=== PATIENT | male | born 1965 | race Caucasian/White ===

== ENCOUNTER → 2018-03-15 | Day surgery (SDC) | payer OTHER ==
[2018-03-14 09:37] VITALS: BMI 30.4
[~2018-03-15] MED LIST: LACTATED RINGERS 1,000 ML IV SCH; LIDOCAINE 1% 20 ML VIAL (10MG/ML) FOR IV START INTRADERMA ONE; MIDAZOLAM 2 MG/2 ML VIAL ONE; PROPOFOL 10 MG/ML 20 ML VIAL IV ONE; fentaNYL (PF) 50 MCG/ML 2 ML AMP ONE
[2018-03-15 07:57] VITALS: TEMP 97.2
--- NOTE | 2018-03-15 08:53 | P.GSHP ---
History of Present Illness H&P Date: 03/15/18 Chief Complaint: Screening colonoscopy This a 52-year-old male from Dr. Marlyn watson. Patient is evidence today for screening colonoscopy. He has history of colon polyps. His last colonoscopy his prostate 4 years ago. Past Medical History Past Medical History: Asthma, Coronary Artery Disease (CAD), Chest Pain / Angina , Hypertension Additional Past Medical History / Comment(s): hemorrhoids-BLEEDING WITH STOOLS, CONSTIPATION,diverticulosis,polyps,HAS ONLY RT KIDNEY-DONATED LT KIDNEY History of Any Multi-Drug Resistant Organisms: None Reported Past Surgical History: Heart Catheterization With Stent, Orthopedic Surgery Additional Past Surgical History / Comment(s): CARDIAC STENTS X 6, HEART CATH X2 ,FUSION C3-C4,LT KNEE SURGERY,RT SHOULDER SURGERY,LT NEPHRECTOMY Past Anesthesia/Blood Transfusion Reactions: No Reported Reaction Date of Last Stent Placement:: Smoking Status: Former smoker - Past Family History Mother Family Medical History: Diabetes Mellitus, Renal Disease Additional Family Medical History / Comment(s): CAROTID ARTERIES OPENED UP Father Additional Family Medical History / Comment(s): AT AGE 36 WITH ANEURYSM Medications and Allergies Home Medications Medication Instructions Recorded Confirmed Type Aspirin 81 mg PO DAILY 03/16/15 03/14/18 History Atorvastatin [Lipitor] 80 mg PO HS 03/16/15 03/15/18 History Calcium Polycarbophil [Fibercon] 625 mg PO DAILY 03/16/15 03/15/18 History Enalapril [Vasotec] 5 mg PO BID 03/16/15 03/14/18 History Metoprolol Succinate [Toprol XL] 50 mg PO HS 03/16/15 03/15/18 History Multivitamins, Thera [Multivitamin] 1 tab PO DAILY 03/16/15 03/14/18 History Prasugrel [Effient] 10 mg PO DAILY 03/16/15 03/14/18 History Sertraline HCl [Zoloft] 50 mg PO QAM 03/16/15 03/15/18 History Vitamin E (Dl,Tocopheryl Acet) 400 unit PO DAILY 03/16/15 03/14/18 History [Vitamin E] Cetirizine HCl/Pseudoephedrine 1 each PO DAILY 03/14/18 03/14/18 History [Zyrtec-D Tablet] Ergocalciferol [Vitamin D2] 50,000 unit PO MUNGUIA 03/14/18 03/14/18 History Gabapentin(Unk Dose) 1 tab PO BID 03/14/18 03/14/18 History traMADol HCL [Ultram] 50 mg PO Q6HR PRN 03/14/18 03/15/18 History Allergies Allergy/AdvReac Type Severity Reaction Status Date / Time oxycodone HCl [From Percocet] Allergy severe Verified 03/14/18 09:27 agitation Surgical - Exam Vital Signs Temp Pulse Resp BP Pulse Ox 97.2 F L 65 16 103/66 99 03/15/18 07:54 03/15/18 07:54 03/15/18 07:54 03/15/18 07:54 03/15/18 07:54 - General well developed, no distress - Eyes PERRL - ENT normal pinna - Neck no masses - Respiratory normal expansion - Cardiovascular Rhythm: regular - Abdomen Abdomen: soft, non tender Assessment and Plan Assessment: History of colon polyps. We'll perform colonoscopy.
--- NOTE | 2018-03-15 09:07 | P.OP ---
Date of Procedure: 03/15/18 Preoperative Diagnosis: History of colon polyps Postoperative Diagnosis: Rectal polyp Diverticulosis Procedure(s) Performed: Colonoscopy Anesthesia: MAC Surgeon: Terrence Mcdonough Pathology: other (Rectal polyp) Condition: stable Disposition: PACU Description of Procedure: The patient's placed on the endoscopy table in the lateral position. He received IV sedation. Digital rectal exam was performed which revealed no ebonized. The flexible colonoscope was then placed patient anus passed throughout the entire colon. The ileocecal valve was visualized. The cecum, ascending and transverse colon appeared normal. In the descending; there is mild diverticular changes. Scope was then brought back the rectum and a sessile polyp was visualized with the cold forcep. Scope was withdrawn for patient.
[2018-03-15 09:15] VITALS: RESP 18
[2018-03-15 10:08] VITALS: BP 100/59; PULSE 57
== END ==
LOC: ORWHC2ENDO 14:23
PROVIDERS: ATTEND Surgery
DX: Z12.11 Encounter for screening for malignant neoplasm of colon (principal); K62.1 Rectal polyp; K57.30 Diverticulosis of large intestine without perforation or abscess without bleeding; Z86.010 Personal history of colon polyps; J45.909 Unspecified asthma, uncomplicated; I25.119 Atherosclerotic heart disease of native coronary artery with unspecified angina pectoris; I10 Essential (primary) hypertension; Z90.5 Acquired absence of kidney; Z95.5 Presence of coronary angioplasty implant and graft; Z87.891 Personal history of nicotine dependence; I25.2 Old myocardial infarction; E78.5 Hyperlipidemia, unspecified; Z79.82 Long term (current) use of aspirin; Z79.899 Other long term (current) drug therapy; Z88.5 Allergy status to narcotic agent
CPT/HCPCS: 88305; 45380; J2250; J3010; J2704

== ENCOUNTER 2019-02-17 16:26 | Emergency (ER) | payer OTHER ==
[2019-02-17 17:30] VITALS: BP 167/83; PULSE 68; RESP 18; TEMP 98.2
[2019-02-17] MEDS ORDERED: DIPH,PERTUS(ACELL)TETVAC-LF 0.5 ML VIAL IM ONE (17:42)
[2019-02-17] MEDS ORDERED: ceFAZolin 1,000 MG VIAL IM STA (17:42)
--- NOTE | 2019-02-17 18:24 | XR ---
EXAMINATION TYPE: XR hand complete LT DATE OF EXAM: 02/17/2019 COMPARISON: NONE HISTORY: Injury pain TECHNIQUE: 3 views FINDINGS: There is deformity of the tuft of the distal phalanx of the middle finger consistent with f racture and laceration. There is a 1 mm metallic foreign body at the soft tissues of the tip of the l ittle finger. There is no dislocation. IMPRESSION: Laceration deformity of the distal phalanx of the middle finger.
[2019-02-17] MEDS ORDERED: LIDOCAINE 1% INJ 10MG/ML (20 ML MDV) SQ ONE (18:37)
--- NOTE | 2019-02-17 18:53 | ED ---
Upper Extremity HPI - General Chief Complaint: Extremity Injury, Upper Stated Complaint: Drill went though finger Time Seen by Provider: 02/17/19 17:32 Source: patient Mode of arrival: ambulatory Limitations: no limitations - History of Present Illness Initial Comments: 53-year-old male presents today for chief complaint of left third digit injury. Patient states he drilled through the tip of his left third digit. He states he went to the nailbed. Patient denies loss of sensation. Patient denies any muscle weakness or decreased range of motion at the left third digit. Patient states he has on anticoagulation therapy. Patient states he applied pressure and presented for dilation. Patient is unsure of his last tetanus vaccination. She denies any other areas of injury. Remaining review of systems negative, patient denies any recent fever, chills, shortness of breath, chest pain, back pain, abdominal pain, nausea or vomiting, numbness or tingling, dysuria or hematuria, constipation or diarrhea, headaches or visual changes, or any other complaints. - Related Data Home Medications Medication Instructions Recorded Confirmed Aspirin 81 mg PO DAILY 03/16/15 03/14/18 Atorvastatin [Lipitor] 80 mg PO HS 03/16/15 03/15/18 Calcium Polycarbophil [Fibercon] 625 mg PO DAILY 03/16/15 03/15/18 Enalapril [Vasotec] 5 mg PO BID 03/16/15 03/14/18 Metoprolol Succinate [Toprol XL] 50 mg PO HS 03/16/15 03/15/18 Multivitamins, Thera [Multivitamin] 1 tab PO DAILY 03/16/15 03/14/18 Prasugrel [Effient] 10 mg PO DAILY 03/16/15 03/14/18 Sertraline HCl [Zoloft] 50 mg PO QAM 03/16/15 03/15/18 Vitamin E (Dl,Tocopheryl Acet) 400 unit PO DAILY 03/16/15 03/14/18 [Vitamin E] Cetirizine HCl/Pseudoephedrine 1 each PO DAILY 03/14/18 03/14/18 [Zyrtec-D Tablet] Ergocalciferol [Vitamin D2] 50,000 unit PO MUNGUIA 03/14/18 03/14/18 Gabapentin(Unk Dose) 1 tab PO BID 03/14/18 03/14/18 traMADol HCL [Ultram] 50 mg PO Q6HR PRN 03/14/18 03/15/18 Previous Rx's Medication Instructions Recorded Cephalexin [Keflex] 500 mg PO Q8HR 7 Days #21 cap 02/17/19 Allergies Allergy/AdvReac Type Severity Reaction Status Date / Time oxycodone HCl [From Percocet] Allergy severe Verified 03/14/18 09:27 agitation Review of Systems ROS Statement: Those systems with pertinent positive or pertinent negative responses have been documented in the HPI. ROS Other: All systems not noted in ROS Statement are negative. Past Medical History Past Medical History: Asthma, Coronary Artery Disease (CAD), Chest Pain / Angina, Hypertension Additional Past Medical History / Comment(s): diverticulosis,polyps,HAS ONLY RT KIDNEY-DONATED LT KIDNEY History of Any Multi-Drug Resistant Organisms: None Reported Past Surgical History: Back Surgery, Heart Catheterization With Stent, Orthopedic Surgery Additional Past Surgical History / Comment(s): CARDIAC STENTS X 6, HEART CATH X2,FUSION C3-C4,LT KNEE SURGERY,RT SHOULDER SURGERY,LT NEPHRECTOMY Past Anesthesia/Blood Transfusion Reactions: No Reported Reaction Date of Last Stent Placement:: Smoking Status: Former smoker Past Alcohol Use History: None Reported Past Drug Use History: None Reported - Past Family History Mother Family Medical History: Diabetes Mellitus, Renal Disease Additional Family Medical History / Comment(s): CAROTID ARTERIES OPENED UP Father Additional Family Medical History / Comment(s): AT AGE 36 WITH ANEURYSM General Exam - General Exam Comments Initial Comments: General: The patient is awake and alert, in no distress, and does not appear acutely ill. Eye: Pupils are equal, round and reactive to light, extra-ocular movements are intact. No nystagmus. There is normal conjunctiva bilaterally. No signs of ic terus. Neck: The neck is supple, there is no tenderness or JVD. Cardiovascular: There is a regular rate and rhythm. No murmur, rub or gallop is appreciated. Respiratory: Lungs are clear to auscultation, respirations are non-labored, breath sounds are equal. No wheezes, stridor, rales, or rhonchi. Musculoskeletal: Puncture through ventral aspect, through nail bed. No complete avulsion of nail. Nail plate split. Normal ROM MTP DIP and PIP joints of the left third digit equal in comparison with unaffected digits, tenderness at site of laceration. Strength 5/5 at the MTP DIP PIP joints equal and comparison with the unaffected digits. Sensation intact both proximal distal to injury site. Radial pulses equal bilaterally 2+. Capillary refill < 2 seconds. Neurological: A&O x 3. CN II-XII intact, There are no obvious motor or sensory deficits. Coordination appears grossly intact. Speech is normal. Skin: Skin is warm and dry and no rashes or lesions are noted. Psychiatric: Cooperative, appropriate mood & affect, normal judgment. Limitations: no limitations Course Vital Signs 02/17/19 17:25 Temperature 98.2 F Pulse Rate 68 Respiratory 18 Rate Blood Pressure 167/83 O2 Sat by Pulse 98 Oximetry Medical Decision Making - Medical Decision Making 53-year-old male presenting for distal left third digit injury, drill through finger. His tetanus is updated. Wound was extensively irrigated and cleansed. Using iodine and pressurized irrigation. Involvement of the nailbed and plate. Tuft fracture present on imaging studies. FB was not present on attempted exploration, could not locate FB without significant tissue damage. Patient was given Ancef. Patient was given outpatient prescription for Keflex. Patient was placed in a splint after applying sterile bandage. Patient was instructed on return parameters. Patient was instructed to follow-up closely with hand physician Dr. Myers. Patient is to immediate return to the emergency department for any weakness or decreased range of motion at the digit. Patient verbalizes understanding. Patient was discharged appearing well, neurovascularly intact. Disposition Clinical Impression: Open fracture of tuft of distal phalanx of finger Disposition: HOME SELF-CARE Condition: Good Instructions (If sedation given, give patient instructions): Finger Fracture (ED) Additional Instructions: Please use medication as discussed. Please follow-up with orthopedic surgery as discussed. Please return to emergency room if the symptoms increase or worsen or for any other concerns. Prescriptions: Cephalexin [Keflex] 500 mg PO Q8HR 7 Days #21 cap Is patient prescribed a controlled substance at d/c from ED?: No Referrals: Marlyn Wilkerson DO [Primary Care Provider] - 1-2 days John Abernathy DO [Medical Doctor] - 1-2 days Presley Fortune DO [Doctor of Osteopathic Medicine] - 1-2 days Time of Disposition: 18:53
== END 2019-02-17 19:04 | disposition home or self-care (01) ==
LOC: EC 16:26
DX: S62.633B Displaced fracture of distal phalanx of left middle finger, initial encounter for open fracture (principal); I25.119 Atherosclerotic heart disease of native coronary artery with unspecified angina pectoris; I10 Essential (primary) hypertension; Z23 Encounter for immunization; Z87.891 Personal history of nicotine dependence; Z79.82 Long term (current) use of aspirin; Z79.899 Other long term (current) drug therapy; Z95.5 Presence of coronary angioplasty implant and graft; Z88.5 Allergy status to narcotic agent; Z90.5 Acquired absence of kidney; X58.XXXA Exposure to other specified factors, initial encounter; Y92.009 Unspecified place in unspecified non-institutional (private) residence as the place of occurrence of the external cause
CPT/HCPCS: 73130; 90715; 99283; 90471; 96372; J0690; J2001

== ENCOUNTER 2020-08-24 07:44 | Day surgery (SDC) | payer OTHER ==
[2020-08-20 16:00] VITALS: BMI 25.8
[~2020-08-24 07:44] MED LIST changes: +LIDOCAINE 1% (10MG/ML) FOR IV START INTRADERMA PRN; -LIDOCAINE 1% 20 ML VIAL (10MG/ML) FOR IV START INTRADERMA ONE; -MIDAZOLAM 2 MG/2 ML VIAL ONE; -PROPOFOL 10 MG/ML 20 ML VIAL IV ONE; -fentaNYL (PF) 50 MCG/ML 2 ML AMP ONE
[2020-08-24 08:01] VITALS: TEMP 97.8
[2020-08-24] MEDS ORDERED: LACTATED RINGERS 1,000 ML IV ONE (08:01)
[2020-08-24 08:08] LABS: Glucose,Whole Blood 108 mg/dL (75-99)
[2020-08-24] MEDS ORDERED: LIDOCAINE 1% INJ 10MG/ML (20 ML MDV) ONE (08:45)
[2020-08-24] MEDS ORDERED: PROPOFOL 10 MG/ML 20 ML VIAL IV ONE (08:45)
--- NOTE | 2020-08-24 08:50 | P.GSHP ---
History of Present Illness H&P Date: 08/24/20 Chief Complaint: History of colon polyps 55-year-old male with history of previous adenomatous colon polyps. Last colonoscopy 2 years ago showed hyperplastic polyps. Family history of colon cancer in his grandfather. No bowel complaints. Past Medical History Past Medical History: Coronary Artery Disease (CAD), Diabetes Mellitus, Hyperlipidemia, Hypertension Additional Past Medical History / Comment(s): Diverticulosis, polyps, HAS ONLY RT KIDNEY-DONATED LT KIDNEY History of Any Multi-Drug Resistant Organisms: None Reported Past Surgical History: Back Surgery, Heart Catheterization With Stent, Orthopedic Surgery Additional Past Surgical History / Comment(s): CARDIAC STENTS X 6, HEART CATH X2,FUSION C3-C4,LT KNEE SURGERY,RT SHOULDER SURGERY,LT NEPHRECTOMY Past Anesthesia/Blood Transfusion Reactions: No Reported Reaction Date of Last Stent Placement:: Smoking Status: Former smoker - Past Family History Mother Family Medical History: Diabetes Mellitus, Renal Disease Additional Family Medical History / Comment(s): CAROTID ARTERIES OPENED UP Father Additional Family Medical History / Comment(s): AT AGE 36 WITH ANEUR YSM Medications and Allergies Home Medications Medication Instructions Recorded Confirmed Type Aspirin 81 mg PO DAILY 03/16/15 08/23/20 History Atorvastatin [Lipitor] 80 mg PO HS 03/16/15 08/23/20 History Calcium Polycarbophil [Fibercon] 625 mg PO DAILY 03/16/15 08/23/20 History Enalapril [Vasotec] 5 mg PO BID 03/16/15 08/23/20 History Metoprolol Succinate [Toprol XL] 50 mg PO HS 03/16/15 08/23/20 History Multivitamins, Thera [Multivitamin] 1 tab PO DAILY 03/16/15 08/23/20 History Prasugrel [Effient] 10 mg PO DAILY 03/16/15 08/23/20 History Sertraline HCl [Zoloft] 50 mg PO QAM 03/16/15 08/23/20 History Vitamin E (Dl,Tocopheryl Acet) 400 unit PO DAILY 03/16/15 08/23/20 History [Vitamin E] Cetirizine HCl/Pseudoephedrine 1 each PO DAILY 03/14/18 08/23/20 History [Zyrtec-D Tablet] Ergocalciferol [Vitamin D2] 50,000 unit PO MUNGUIA 03/14/18 08/23/20 History Gabapentin(Unk Dose) 1 tab PO BID 03/14/18 08/23/20 History traMADol HCL [Ultram] 50 mg PO Q6HR PRN 03/14/18 08/23/20 History Levothyroxine Sodium [Synthroid] 25 mcg PO DAILY 08/20/20 08/23/20 History metFORMIN HCL 500 mg PO BID 08/20/20 08/23/20 History Allergies Allergy/AdvReac Type Severity Reaction Status Date / Time oxycodone HCl [From Percocet] Allergy severe Verified 08/20/20 15:42 agitation Surgical - Exam Vital Signs Temp Pulse Resp BP Pulse Ox 97.8 F 67 18 145/78 98 08/24/20 08:00 08/24/20 08:00 08/24/20 08:00 08/24/20 08:00 08/24/20 08:00 Physical exam: General: Well-developed, well-nourished HEENT: Normocephalic, sclerae nonicteric Abdomen: Nontender, nondistended Extremities: No edema Neuro: Alert and oriented Results - Labs Abnormal Lab Results - Last 24 Hours (Table) 08/24/20 Range/Units 08:07 POC Glucose (mg/dL) 108 H (75-99) mg/dL Assessment and Plan (1) History of colon polyps Narrative/Plan: Will proceed with colonoscopy at this time Current Visit: Yes Status: Acute Code(s): Z86.010 - PERSONAL HISTORY OF COLONIC POLYPS SNOMED Code(s): 530333474
[2020-08-24 09:08] VITALS: RESP 16
[2020-08-24 09:21] VITALS: BP 114/68; PULSE 62
--- NOTE | 2020-08-24 09:21 | P.PCN ---
Date of Procedure: 08/24/20 Procedure(s) Performed: PREOPERATIVE DIAGNOSIS: History of colon polyps POSTOPERATIVE DIAGNOSIS: Cecal polyp, ascending colon polyps, rectal polyp, diverticulosis PROCEDURE: Colonoscopy with snare polypectomy ANESTHESIA: MAC SURGEON: Pedro Felix M.D. SPECIMENS: Polyps ENDOSCOPIC PROCEDURE: The patient was placed on the endoscopy table in the left decubitus position. The Olympus colonoscope was inserted into the anus and passed under direct visualization to the base of the cecum. The appendiceal o rifice was visualized. From that point the scope was slowly withdrawn inspecting all surfaces carefully. At the base of the cecum was small polyp was seen and removed using the snare with cautery technique. In the ascending colon 2 additional polyps were seen and removed in a similar fashion. The remainder of the ascending transverse descending and sigmoid colon appeared normal. In the rectum a small polyp was seen and removed using the snare with cautery technique. The patient did have mild diverticulosis involving the sigmoid colon. Digital rectal examination was normal. The patient was taken to the recovery room in stable condition per anesthesia guidelines. RECOMMENDATIONS: Biopsy results. Recommend follow-up colonoscopy 5 years.
[2020-08-24] MEDS ORDERED: fentaNYL (PF) 50 MCG/ML 2 ML AMP IV PRN (19:58)
[2020-08-24] MEDS ORDERED: ONDANSETRON 4 MG/2 ML VIAL IVP PRN (19:58)
[2020-08-24] MEDS ORDERED: MIDAZOLAM 2 MG/2 ML VIAL IV PRN (19:58)
[2020-08-24] MEDS ORDERED: LACTATED RINGERS 1,000 ML IV SCH (20:00)
== END 2020-08-24 09:42 | disposition home or self-care (01) ==
LOC: ORWHC2ENDO 07:44
PROVIDERS: ATTEND Surgery
DX: Z12.11 Encounter for screening for malignant neoplasm of colon (principal); D12.2 Benign neoplasm of ascending colon; D12.0 Benign neoplasm of cecum; K62.1 Rectal polyp; K57.30 Diverticulosis of large intestine without perforation or abscess without bleeding; Z86.010 Personal history of colon polyps; I25.10 Atherosclerotic heart disease of native coronary artery without angina pectoris; E11.9 Type 2 diabetes mellitus without complications; E78.5 Hyperlipidemia, unspecified; I10 Essential (primary) hypertension; E07.9 Disorder of thyroid, unspecified; F32.9 Major depressive disorder, single episode, unspecified; Z52.4 Kidney donor; Z98.890 Other specified postprocedural states; Z95.5 Presence of coronary angioplasty implant and graft; Z98.1 Arthrodesis status; Z87.891 Personal history of nicotine dependence; Z79.82 Long term (current) use of aspirin; Z79.899 Other long term (current) drug therapy; Z79.890 Hormone replacement therapy; Z79.84 Long term (current) use of oral hypoglycemic drugs; Z88.5 Allergy status to narcotic agent; Z80.0 Family history of malignant neoplasm of digestive organs; Z83.3 Family history of diabetes mellitus; Z84.1 Family history of disorders of kidney and ureter; Z82.49 Family history of ischemic heart disease and other diseases of the circulatory system
CPT/HCPCS: 88305; 45385; J2001; J2704

== ENCOUNTER 2021-02-17 15:59 | Emergency (ER) | payer OTHER ==
[2021-02-17 16:05] VITALS: BP 141/81; PULSE 83; RESP 18; TEMP 98.5
--- NOTE | 2021-02-17 16:25 | ED ---
General Adult HPI - General Chief complaint: Abdominal Pain Stated complaint: Sent by PCP Time Seen by Provider: 02/17/21 16:00 Source: patient, RN notes reviewed, old records reviewed Mode of arrival: ambulatory Limitations: no limitations - History of Present Illness Initial comments: This a 55-year-old male who presents emergency Department stating that he has bilateral inguinal hernias. Patient states he has not been following his restrictions very well and every day after work he still has some testicular pain in the left testicle. Patient states his been ongoing for the last week or so. Patient states normally feeling fairly good in the morning but has a day progresses any more active testicular pain is worse. Patient states his never excruciating. Patient denies any fever chills. Patient denies any dysuria hematuria urinary frequency. Patient denies any back pain. Patient's abdominal pain. - Related Data Home Medications Medication Instructions Recorded Confirmed Atorvastatin [Lipitor] 80 mg PO HS 03/16/15 02/17/21 Calcium Polycarbophil [Fibercon] 625 mg PO BID 03/16/15 02/17/21 Prasugrel [Effient] 10 mg PO DAILY 03/16/15 02/17/21 Vitamin E (Dl,Tocopheryl Acet) 400 unit PO HS 03/16/15 02/17/21 [Vitamin E] Ergocalciferol [Vitamin D2] 1,250 mcg PO MUNGUIA 03/14/18 02/17/21 Ascorbic Acid [Vitamin C] 1,000 mg PO DAILY 02/17/21 02/17/21 Cyanocobalamin (Vitamin B-12) 1,000 mcg PO DAILY 02/17/21 02/17/21 [Vitamin B-12] Levothyroxine Sodium [Synthroid] 125 mcg PO DAILY 02/17/21 02/17/21 Metoprolol Succinate (ER) [Toprol 100 mg PO HS 02/17/21 02/17/21 Xl] Zinc 50 mg PO DAILY 02/17/21 02/17/21 lisinopriL [Prinivil] 20 mg PO DAILY 02/17/21 02/17/21 metFORMIN HCL [metFORMIN HCL ER] 500 mg PO DAILY 02/17/21 02/17/21 Allergies Allergy/AdvReac Type Severity Reaction Status Date / Time oxycodone HCl [From Percocet] AdvReac severe Verified 02/17/21 17:00 agitation Review of Systems ROS Statement: Those systems with pertinent positive or pertinent negative responses have been documented in the HPI. ROS Other: All systems not noted in ROS Statement are negative. Past Medical History Past Medical History: Coronary Artery Disease (CAD), Diabetes Mellitus, Hyperlipidemia, Hypertension Additional Past Medical History / Comment(s): Diverticulosis, polyps, HAS ONLY RT KIDNEY-DONATED LT KIDNEY History of Any Multi-Drug Resistant Organisms: None Reported Past Surgical History: Back Surgery, Heart Catheterization With Stent, Orthoped ic Surgery Additional Past Surgical History / Comment(s): CARDIAC STENTS X 6, HEART CATH X2,FUSION C3-C4,LT KNEE SURGERY,RT SHOULDER SURGERY,LT NEPHRECTOMY Past Anesthesia/Blood Transfusion Reactions: No Reported Reaction Date of Last Stent Placement:: Past Psychological History: No Psychological Hx Reported Smoking Status: Former smoker - Past Family History Mother Family Medical History: Diabetes Mellitus, Renal Disease Additional Family Medical History / Comment(s): CAROTID ARTERIES OPENED UP Father Additional Family Medical History / Comment(s): AT AGE 36 WITH ANEURYSM General Exam - General Exam Comments Initial Comments: GENERAL: Patient is well-developed and well-nourished. Patient is nontoxic and well- hydrated and is in no acute distress. ENT: Neck is soft and supple. No significant lymphadenopathy is noted. Oropharynx is clear. Moist mucous membranes. Neck has full range of motion without eliciting any pain. EYES: The sclera were anicteric and conjunctiva were pink and moist. Extraocular movements were intact and pupils were equal round and reactive to light. Eyelids were unremarkable. ABDOMEN: Soft and nontender with normal bowel sounds. GENITALIA: Patient has obvious inguinal hernias are reducible and he stands. Patient has some slight tenderness of the left testicle there is no swelling redness of the scrotum. No masses on the left testicle. SKIN: Skin is clear with no lesions or rashes and otherwise unremarkable. NEUROLOGIC: Patient is alert and oriented x3. Cranial nerves II through XII are grossly intact. Motor and sensory are also intact. Normal speech, volume and content. Symmetrical smile. MUSCULOSKELETAL: Normal extremities with adequate strength and full range of motion. No lower extremity swelling or edema. No calf tenderness. LYMPHATICS: No significant lymphadenopathy is noted PSYCHIATRIC: Normal psychiatric evaluation. Limitations: no limitations Course Vital Signs 02/17/21 16:02 Temperature 98.5 F Pulse Rate 83 Respiratory 18 Rate Blood Pressure 141/81 O2 Sat by Pulse 100 Oximetry Medical Decision Making - Medical Decision Making Scrotal ultrasound shows no torsion no epididymitis no masses. Patient's inguinal hernias are reducible easily bilaterally - Lab Data Lab Results 02/17/21 Range/Units 16:29 Urine Color Light Yellow Urine Appearance Clear (Clear) Urine pH 5.5 (5.0-8.0) Ur Specific Nelson 1.010 (1.001-1.035) Urine Protein 1+ H (Negative) Urine Glucose (UA) Negative (Negative) Urine Ketones Negative (Negative) Urine Blood Negative (Negative) Urine Nitrite Negative (Negative) Urine Bilirubin Negative (Negative) Urine Urobilinogen <2.0 (<2.0) mg/dL Ur Leukocyte Esterase Negative (Negative) Urine RBC <1 (0-5) /hpf Urine WBC <1 (0-5) /hpf Urine Mucus Rare H (None) /hpf Disposition Clinical Impression: Bilateral inguinal hernia Disposition: HOME SELF-CARE Condition: Good Instructions (If sedation given, give patient instructions): Inguinal Hernia (ED) Is patient prescribed a controlled substance at d/c from ED?: No Referrals: Marlyn Wilkerson DO [Primary Care Provider] - 1-2 days Time of Disposition: 17:56
[2021-02-17 16:50] LABS: Appearance,Urine Clear (Clear); Bilirubin,Urine Negative (Negative); Blood,Urine Negative (Negative); Color,Urine Light Yellow; Glucose,Urine (UA) Negative (Negative); Ketones,Urine Negative (Negative); Leukocyte Esterase,Urine Negative (Negative); Mucus,Urine Rare /hpf; Nitrite,Urine Negative (Negative); PH, Urine 5.5 (5.0-8.0); Protein,Urine 1+ (Negative); RBC,Urine <1 /hpf (0-5); Urobilinogen,Urine <2.0 mg/dL (<2.0); WBC,Urine <1 /hpf (0-5)
--- NOTE | 2021-02-17 17:21 | US ---
EXAMINATION TYPE: US scrotum with doppler. Grayscale and color Doppler Duplex imaging performed of lory moseley scrotum. DATE OF EXAM: 02/17/2021 COMPARISON: NONE CLINICAL HISTORY: [employer] wants scrotal ultrasound. EXAM MEASUREMENTS: TESTICLES: Right Testicle: 4.9 x 2.2 x 2.8 cm Left Testicle: 4.2 x 2.7 x 3.1 cm EPIDIDYMIS HEAD: Right Epididymis: 1.1 cm Left Epididymis: 1.1 cm Doppler performed to assess for testicular vascularity; positive bilateral arterial and venous color flow and waveforms are seen. There is no evidence of testicular torsion. Presence of hydroceles: no Presence of varicoceles: no There is no evidence of testicular mass or testicular calcifications. Unremarkable epididymides bilat erally. IMPRESSION: 1. Normal scrotal ultrasound. 2. No evidence of epididymitis or orchitis. 3. No evidence of testicular torsion.
== END 2021-02-17 18:15 | disposition home or self-care (01) ==
LOC: EC 15:59
DX: K40.20 Bilateral inguinal hernia, without obstruction or gangrene, not specified as recurrent (principal); I25.10 Atherosclerotic heart disease of native coronary artery without angina pectoris; E11.9 Type 2 diabetes mellitus without complications; E78.5 Hyperlipidemia, unspecified; I10 Essential (primary) hypertension; Z87.891 Personal history of nicotine dependence; Z79.84 Long term (current) use of oral hypoglycemic drugs
CPT/HCPCS: 76870; 81001; 93975; 99284

== ENCOUNTER 2021-03-11 08:59 | Day surgery (SDC) | payer OTHER ==
[2021-03-10 14:43] VITALS: BMI 25.8
--- NOTE | 2021-03-11 07:52 | P.GSHP ---
History of Present Illness H&P Date: 03/11/21 CHIEF COMPLAINT: Inguinal hernia, bilateral HISTORY OF PRESENT ILLNESS: The patient is a 55-year-old male who presents with a history of swelling and pain along the both groins. Reports symptoms ongoing for over a month. His pre-existing heart disease and sees his family manager. No reports of bowel obstruction. No alleviating factors. No prior repairs. Presents for surgical intervention for symptomatic bilateral inguinal hernias. PAST MEDICAL HISTORY: Please see list. PAST SURGICAL HISTORY: Please see list. MEDICATIONS: Please see list. ALLERGIES: Please see list. SOCIAL HISTORY: No illicit drug use. Past history of alcoholism FAMILY HISTORY: No reports of Crohn disease or ulcerative colitis. REVIEW OF ORGAN SYSTEMS: CONSTITUTIONAL: No reports of fevers or chills. GI: Denies any blood in stools or constipation. CONSTITUTIONAL: Denies any fever or chills. Denies recent weight loss or weight gain. HEENT: Denies any trouble with vision, hearing or nosebleeds. No difficulty swallowing. LYMPHATIC: The patient denies any lumps and bumps around the neck. ENDOCRINE: Has hypothyroidism. Has diabetes type 2 RESPIRATORY: Denies pneumonia. Denies any troubles with breathing or dyspnea on exertion. CARDIOVASCULAR: Past chest pain, palpitations, or recent heart attacks. Past cardiac catheterization. Has hyperlipidemia. Has hypertensive heart disease. GENITOURINARY: Denies any blood in urine. Has increased urinary frequency. MUSCULOSKELETAL: Denies any back pain, stiffness, joint arthritis. NEUROLOGIC: Denies any numbness or tingling along the distal extremities. No seizure disorders or headaches. PSYCHIATRIC: Has depression. No suidical ideation. HEMATOLOGIC: Denies any abnormal bleeding or bruising. BREASTS: Denies any breast lumps, pain or nipple discharge. PHYSICAL EXAM: VITAL SIGNS: Stable GENERAL: Well-developed pleasant male in no acute distress. HEENT: No scleral icterus. Extraocular movements grossly intact. Moist buccal mucosa. NECK: Supple without lymphadenopathy. CHEST: Unlabored respirations. Equal bilateral excursions. CARDIOVASCULAR: Regular rate and rhythm. Distal 2+ pulses. ABDOMEN: Soft, nondistended. No peritoneal signs. Palpable defect of the bilateral groin. MUSCULOSKELETAL: No clubbing, cyanosis, or edema. ASSESSMENT: 1. Inguinal hernia, bilateral 2. Hypertensive heart disease 3. Diabetes type 2 4. Hypothyroidism 5. History of alcoholism. PLAN: 1. Recommend proceeding with a robotic inguinal repair with mesh with bilateral approach. 2. Benefits and risks of surgical intervention was discussed including possibility of open technique. 3. DVT prophylaxis. 4. Antibiotic prophylaxis. 5. Patient's elevated risk for complications woth pre-existing history of hypertensive heart disease, alcoholism, diabetes type 2. Past Medical History Past Medical History: Coronary Artery Disease (CAD), Diabetes Mellitus, Hyperlipidemia, Hypertension, Sleep Apnea/CPAP/BIPAP, Thyroid Disorder Additional Past Medical History / Comment(s): Diverticulosis, colon polyps, HAS ONLY RT KIDNEY-DONATED LT KIDNEY History of Any Multi-Drug Resistant Organisms: None Reported Past Surgical History: Back Surgery, Heart Catheterization With Stent, Orthopedic Surgery Additional Past Surgical History / Comment(s): CARDIAC STENTS X 6, HEART CATH X 2,FUSION C3-C4,LT KNEE SURGERY,RT SHOULDER SURGERY,LT NEPHRECTOMY Past Anesthesia/Blood Transfusion Reactions: No Reported Reaction Date of Last Stent Placement:: Smoking Status: Former smoker - Past Family History Mother Family Medical History: Diabetes Mellitus, Renal Disease Additional Family Medical History / Comment(s): CAROTID ARTERIES OPENED UP Father Additional Family Medical History / Comment(s): AT AGE 36 WITH ANEURYSM Medications and Allergies Home Medications Medication Instructions Recorded Confirmed Type Atorvastatin [Lipitor] 80 mg PO HS 03/16/15 03/10/21 History Calcium Polycarbophil [Fibercon] 625 mg PO BID 03/16/15 03/10/21 History Prasugrel [Effient] 10 mg PO DAILY 03/16/15 03/10/21 History Vitamin E (Dl,Tocopheryl Acet) 400 unit PO HS 03/16/15 03/10/21 History [Vitamin E] Ergocalciferol [Vitamin D2] 1,250 mcg PO MUNGUIA 03/14/18 03/10/21 History Ascorbic Acid [Vitamin C] 1,000 mg PO DAILY 02/17/21 03/10/21 History Cyanocobalamin (Vitamin B-12) 1,000 mcg PO DAILY 02/17/21 03/10/21 History [Vitamin B-12] Levothyroxine Sodium [Synthroid] 125 mcg PO DAILY 02/17/21 03/10/21 History Metoprolol Succinate (ER) [Toprol 100 mg PO HS 02/17/21 03/10/21 History Xl] Zinc 50 mg PO DAILY 02/17/21 03/10/21 History lisinopriL [Prinivil] 20 mg PO DAILY 02/17/21 03/10/21 History metFORMIN HCL [metFORMIN HCL ER] 500 mg PO DAILY 02/17/21 03/10/21 History Aspirin 81 mg PO DAILY 03/10/21 03/10/21 History [place]-3 Fatty Acids/Fish Oil [Fish 1 each PO DAILY 03/10/21 03/10/21 History Oil 1,000 mg Softgel] Allergies Allergy/AdvReac Type Severity Reaction Status Date / Time oxycodone HCl [From Percocet] AdvReac severe Verified 03/10/21 14:14 agitation
[~2021-03-11 08:59] MED LIST changes: +ACETAMINOPHEN TAB 500 MG TAB PO PRN; +GABAPENTIN 300 MG CAP PO PRN; +HEPARIN SODIUM,PORCINE/PF 5,000 UNIT/0.5 ML SYRINGE SQ PRN; -LACTATED RINGERS 1,000 ML IV SCH; -LIDOCAINE 1% (10MG/ML) FOR IV START INTRADERMA PRN; +MELOXICAM 7.5 MG TAB PO PRN; +TAMSULOSIN 0.4 MG CAP.ER.24H PO PRN
[2021-03-11] MEDS ORDERED: ONDANSETRON 4 MG/2 ML VIAL ONE (09:20)
[2021-03-11] MEDS ORDERED: LACTATED RINGERS 1,000 ML IV ONE ×3 (09:39→11:11)
[2021-03-11 10:03] LABS: Glucose,Whole Blood 105 mg/dL (75-99)
[2021-03-11] MEDS ORDERED: MIDAZOLAM 2 MG/2 ML VIAL IVP ONE (10:08)
[2021-03-11 10:13] LABS: Basophils % (A) 1 %; Eosinophils # (A) 0.5 k/uL (0-0.7); Eosinophils % (A) 5 %; HCT 38.1 % (39.0-53.0); HGB 13.4 gm/dL (13.0-17.5); Lymphocytes # (A) 2.3 k/uL (1.0-4.8); Lymphocytes % (A) 24 %; MCH 29.8 pg (25.0-35.0); MCHC 35.1 g/dL (31.0-37.0); MCV 84.9 fL (80.0-100.0); Mean Platelet Volume 7.7; Monocytes # (A) 0.6 k/uL (0-1.0); Monocytes % (A) 7 %; Neutrophils # (A) 5.7 k/uL (1.3-7.7); Neutrophils % (A) 62 %; Platelet Count 197 k/uL (150-450); RBC 4.49 m/uL (4.30-5.90); RDW 13.6 % (11.5-15.5); WBC 9.3 k/uL (3.8-10.6)
[2021-03-11 10:27] LABS: ALT 33 U/L (4-49); African American GFR (CKD) >90 (>60 ml/min/1.73 sqM); Albumin 4.2 g/dL (3.5-5.0); Anion Gap 8 mmol/L; Blood Urea Nitrogen 19 mg/dL (9-20); Calcium 9.4 mg/dL (8.4-10.2); Carbon Dioxide 23 mmol/L (22-30); Chloride 111 mmol/L (98-107); Glucose 99 mg/dL (74-99); Non-African American GFR(CKD) 89 (>60 ml/min/1.73 sqM); Sodium 142 mmol/L (137-145); Total Protein 6.8 g/dL (6.3-8.2)
[2021-03-11 10:29] LABS: AST 39 U/L (17-59); Alkaline Phosphatase 65 U/L (38-126); Potassium 5.4 mmol/L (3.5-5.1)
[2021-03-11] MEDS ORDERED: GLYCOPYRROLATE 0.2 MG/ML 2 ML VIAL ONE (10:40)
[2021-03-11] MEDS ORDERED: LIDOCAINE 1%-EPI 1:100,000 20 ML VIAL ONE (10:40)
[2021-03-11] MEDS ORDERED: PHENYLEPHRINE-0.9% NACL SYG 1,000 MCG/10 ML SYRINGE ONE (10:40)
[2021-03-11] MEDS ORDERED: PROPOFOL 10 MG/ML 20 ML VIAL IV ONE (10:40)
[2021-03-11] MEDS ORDERED: MIDAZOLAM 2 MG/2 ML VIAL ONE (10:40)
[2021-03-11] MEDS ORDERED: fentaNYL (PF) 50 MCG/ML 2 ML AMP ONE (10:40)
[2021-03-11] MEDS ORDERED: SUCCINYLCHOLINE CHLORIDE 100 MG/5 ML SYR IV ONE (10:40)
[2021-03-11] MEDS ORDERED: ROPIVACAINE 5 MG/ML 30 ML VIAL ONE (10:40)
[2021-03-11] MEDS ORDERED: ROCURONIUM 10 MG/ML (5 ML VIAL) IV ONE (10:40)
[2021-03-11] MEDS ORDERED: ePHEDrine SULFATE/0.9% NACL/PF 50 MG/5 ML SYRINGE IV ONE (10:40)
[2021-03-11] MEDS ORDERED: NEOSTIGMINE 1 MG/ML 10 ML VIAL ONE (10:40)
[2021-03-11] MEDS ORDERED: BUPIVACAINE-EPI 0.5%-1:200,000 10 ML VIAL SQ ONE (10:45)
[2021-03-11 12:33] VITALS: TEMP 97
[2021-03-11 12:36] LABS: Glucose,Whole Blood 204 mg/dL (75-99)
--- NOTE | 2021-03-11 12:39 | P.OP ---
Date of Procedure: 03/11/21 Description of Procedure: SURGEON: BRIDGETTE RILEY MD PREOPERATIVE DIAGNOSES: 1. Initial bilateral inguinal hernias 2. Ischemic cardiomyopathy hypertensive heart disease 3. Coronary artery disease status post cardiac catheterization with stent 4. Diabetes type 2, [id number] 5. History of renal allograft donor 6. Hypothyroidism 7. Hyperlipidemia 8. Depressive disorder 9. Chronic antiplatelet therapy POSTOPERATIVE DIAGNOSES: 1. Initial bilateral inguinal hernias, direct with incarceration 2. Ischemic cardiomyopathy hypertensive heart disease 3. Coronary artery disease status post cardiac catheterization with stent 4. Diabetes type 2, [id number] 5. History of renal allograft donor 6. Hypothyroidism 7. Hyperlipidemia 8. Depressive disorder 9. Chronic antiplatelet therapy OPERATION: 1. Robotic-assisted [place] [place] laparoscopic repair of initial incarcerated right direct inguinal hernia with mesh, 11.[address] 2. Robotic-assisted [place] laparoscopic repair of initial incarcerated left direct inguinal hernia with mesh, 11.[address] 3. Resection of incarcerated subfascial right inguinal lipoma, 4 cm 4. Resection of incarcerated subfascial left inguinal lipoma, 3.5 cm ANESTHESIA: General, regional with local anesthetic ESTIMATED BLOOD LOSS: 5 mL. SPECIMENS: 1. Incarcerated right inguinal hernia subfascial lipoma 2. Incarcerated left inguinal hernia subfascial lipoma COMPLICATIONS: None. FINDINGS: 1. Incarcerated initial direct right inguinal hernia, 2 cm with incarcerated subfascial inguinal lipoma 4 cm 2. Incarcerated left inguinal hernia, 3 cm, direct with incarcerated subfascial inguinal lipoma 3.5 cm 3. 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 Now presents for definitive surgical intervention. Laparoscopic versus open and robotic approaches were discussed. Benefits and risks including bleeding, infection, injury to the vas deferens as well as sterility and chronic groin pain were reviewed. Placement of mesh was also described. Informed consent was obtained. DESCRIPTION: In the preoperative area, the patient was marked with indelible marker along the inguinal hernia. The patient was brought to the operating room and initially laid in supine position. The abdomen had been prepped and draped in standard sterile fashion. [place] draping was also placed. Prior to incision, a timeout protocol was confirmed with surgical team regarding patient's name including procedures to be performed and location along the right groin. Initial positioning for the robotic assisted ports were selected whereby 20 cm superior to the target anatomy, 0 degree 5 mm laparoscopic trocar entry was per formed at the left upper quadrant. The abdomen was insufflated to 15 mmHg which he had tolerated well. Diagnostic laparoscopy demonstrated no injury to bowel, viscera or mesentery. Left lower quadrant greater than omentum to abdominal wall adhesions identified from prior renal allograft donation. Next, along the epigastrium, 8 mm robot trocar was placed. An 8-mm robotic trocar was placed under direct visualization at the right upper quadrant. An 8 mm port was placed at the left upper quadrant. All trocars were positioned between 10-cm apart from each other. The [employer] robot was primed, draped, prepared for docking along upper abdomen of the patient. The patient was positioned 14 steep Trendelenburg position I then went to the [employer] console. The assistant field hockey coach was at bedside for exchange of the robot arms and equipment. The left direct incarcerated inguinal hernia sac was evaginated whereby the peritoneum was scored using Endo scissors with cautery. Once completely reduced into the abdominal cavity, the peritoneal sac of the hernia was stripped in a subfascial 3.5 cm inguinal lipoma was resected. The sac was resected and then passed off for further pathological analysis. The size of the hernia defect was 3 cm with intraoperative films obtained. Using a nonabsorbable 2-0 VLOC, the peritoneal defect of the left inguinal hernia sites was closed using a running suture separately. The defect was found to be completely closed with complete reduction of the left direct inguinal hernia were confirmed. As an onlay, an 11.[address] mesh by [employer] was initially cut in half and entered into the abdominal cavity via the 8 mm trocar. The mesh was tacked to the pelvis using nonabsorbable 0 VLOC 12-inch length sutures. Next, careful attention along the right groin demonstrated incarcerated right inguinal hernia, 2 cm. The right inguinal hernia sac was evaginated whereby the peritoneum was scored using Endo scissors with cautery. Once completely reduced into the abdominal cavity, the peritoneal sac of the hernia was stripped a incarcerated subfascial 3.5-cm right inguinal lipoma. The lipoma and sac was resected and then passed o ff for further pathological analysis. The size of the hernia defect was 2 cm with intraoperative films obtained. Using a nonabsorbable 2-0 VLOC, the peritoneal defect of the right inguinal hernia site was closed using a running suture. The defect was found to be completely closed with complete reduction of the right direct inguinal hernia was confirmed. As an onlay, an 11.[address] mesh by [employer] was initially cut in half and entered into the abdominal cavity via the 8 mm trocar. The mesh was tacked to the pelvis using nonabsorbable 0 VLOC sutures. The robot was undocked from the patient's bedside. I then rescrubbed into the case. Insufflation was released from the abdominal cavity and all instruments were removed from the abdominal cavity. The rest of incisions were reapproximated using 4-0 Monocryl in a running subcuticular fashion. Local anesthetic was placed along the incision including for a bilateral groin block. Incisions were cleansed using dilute hydrogen peroxide. Liquid glue was applied to the skin. At the end of the procedure, the needle, sponge and instrument counts had been verified correct by the surgical endoscopist. The patient had tolerated the procedure well and was taken to the postanesthesia care unit in stable condition. Plan - Discharge Summary Discharge Rx Participant: No New Discharge Prescriptions: New Acetaminophen Tab [Tylenol Tab] 1,000 mg PO Q6HR PRN #30 tablet PRN Reason: Pain Tamsulosin [Flomax] 0.4 mg PO DAILY #5 cap.er.24h Simethicone [Gas-X] 125 mg PO AC-TID PRN #20 capsule PRN Reason: Pain Continue Vitamin E (Dl,Tocopheryl Acet) [Vitamin E] 400 unit PO HS Atorvastatin [Lipitor] 80 mg PO HS Prasugrel [Effient] 10 mg PO DAILY Calcium Polycarbophil [Fibercon] 625 mg PO BID Ergocalciferol [Vitamin D2 (DRISDOL)] 1,250 mcg PO MUNGUIA Zinc 50 mg PO DAILY Ascorbic Acid [Vitamin C] 1,000 mg PO DAILY metFORMIN HCL [metFORMIN HCL ER] 500 mg PO DAILY lisinopriL [Prinivil] 20 mg PO DAILY Metoprolol Succinate (ER) [Toprol XL] 100 mg PO HS Levothyroxine Sodium [Synthroid] 125 mcg PO DAILY [place]-3 Fatty Acids/Fish Oil [Fish Oil 1,000 mg Softgel] 1 each PO DAILY Cyanocobalamin (Vitamin B-12) [Vitamin B-12] 1,000 mcg PO DAILY Aspirin 81 mg PO DAILY Discharge Medication List Atorvastatin [Lipitor] 80 mg PO HS 03/16/15 [History] Calcium Polycarbophil [Fibercon] 625 mg PO BID 03/16/15 [History] Prasugrel [Effient] 10 mg PO DAILY 03/16/15 [History] Vitamin E (Dl,Tocopheryl Acet) [Vitamin E] 400 unit PO HS 03/16/15 [History] Ergocalciferol [Vitamin D2 (DRISDOL)] 1,250 mcg PO MUNGUIA 03/14/18 [History] Ascorbic Acid [Vitamin C] 1,000 mg PO DAILY 02/17/21 [History] Cyanocobalamin (Vitamin B-12) [Vitamin B-12] 1,000 mcg PO DAILY 02/17/21 [History] Levothyroxine Sodium [Synthroid] 125 mcg PO DAILY 02/17/21 [History] Metoprolol Succinate (ER) [Toprol XL] 100 mg PO HS 02/17/21 [History] Zinc 50 mg PO DAILY 02/17/21 [History] lisinopriL [Prinivil] 20 mg PO DAILY 02/17/21 [History] metFORMIN HCL [metFORMIN HCL ER] 500 mg PO DAILY 02/17/21 [History] Aspirin 81 mg PO DAILY 03/10/21 [History] [place]-3 Fatty Acids/Fish Oil [Fish Oil 1,000 mg Softgel] 1 each PO DAILY 03/10/21 [History] Acetaminophen Tab [Tylenol Tab] 1,000 mg PO Q6HR PRN #30 tablet 03/11/21 [Rx] Simethicone [Gas-X] 125 mg PO AC-TID PRN #20 capsule 03/11/21 [Rx] Tamsulosin [Flomax] 0.4 mg PO DAILY #5 cap.er.24h 03/11/21 [Rx] Follow up Appointment(s)/Referral(s): Bridgette Riley MD [STAFF PHYSICIAN] - 03/15/21 Patient Instructions/Handouts: Laparoscopic Herniorrhaphy (IP), Inguinal Hernia Repair (DC) Activity/Diet/Wound Care/Special Instructions: START PRASUGREL/BLOOD THINNER SUNDAY, MARCH 14. Can resume aspirin immediately. Using antibacterial soap. No lifting over 4 pounds 4 weeks, April 11February shower. No bathtub soaks for 2 weeks, March 25 Use ice along incisions for today to prevent swelling. Take tylenol, simethicone scheduled for 3 days for best pain relief Discharge Disposition: HOME SELF-CARE
[2021-03-11] MEDS ORDERED: SODIUM CHLORIDE 0.9% 1,000 ML IV ONE ×3 (12:41→16:24)
[2021-03-11] MEDS ORDERED: HYDROmorphone 0.5 MG/0.5 ML SYRINGE IVP ONE (13:16)
[2021-03-11] MEDS ORDERED: SIMETHICONE 40 MG/0.6 ML DROPS 2,000 MG/30 ML BOTTLE PO ONE (15:32)
[2021-03-11] MEDS ORDERED: ACETAMINOPHEN TAB 500 MG TAB ONE (17:12)
[2021-03-11 19:01] VITALS: BP 105/78; PULSE 72; RESP 18
--- NOTE | 2021-03-13 18:44 | P.ANPRN ---
Procedure Note - Anesthesia - Nerve Block Performed Bilateral Erector Spinae Single Time Out Performed: Yes Date of Procedure: 03/11/21 Procedure Start Time: 10:07 Procedure Stop Time: 10:16 Location of Patient: PreOp Indication: Acute Post-Operative Pain, Requested by Surgeon Sedation Type: Sedate with meaningful contact maintained Preparation: Sterile Prep Position: Prone Needle Types: Pajunk Needle Gauge: 21 Ultrasound used to visualize needle placement: Yes Ultrasound used to observe medication spread: Yes Blood Aspirated: No Pain Paresthesia on Injection Noted: No Resistance on Injection: Normal Image Stored and Saved: Yes Events: Uneventful and Well Tolerated (Ropivacaine 0.5% 15 mL plus Xylocaine 1% with epi 15 mL given bilaterally at T10)
== END 2021-03-11 19:04 | disposition home or self-care (01) ==
LOC: OR 08:59
PROVIDERS: ATTEND Surgery Plastic and Reconstructive Surgery
DX: K40.00 Bilateral inguinal hernia, with obstruction, without gangrene, not specified as recurrent (principal); K66.0 Peritoneal adhesions (postprocedural) (postinfection); D17.79 Benign lipomatous neoplasm of other sites; I11.9 Hypertensive heart disease without heart failure; I25.5 Ischemic cardiomyopathy; I25.10 Atherosclerotic heart disease of native coronary artery without angina pectoris; Z95.5 Presence of coronary angioplasty implant and graft; E11.9 Type 2 diabetes mellitus without complications; E03.9 Hypothyroidism, unspecified; E78.5 Hyperlipidemia, unspecified; F32.9 Major depressive disorder, single episode, unspecified; J45.909 Unspecified asthma, uncomplicated; Z82.49 Family history of ischemic heart disease and other diseases of the circulatory system; Z86.010 Personal history of colon polyps; Z87.19 Personal history of other diseases of the digestive system; Z90.5 Acquired absence of kidney; Z98.1 Arthrodesis status; Z87.891 Personal history of nicotine dependence; Z83.3 Family history of diabetes mellitus; Z84.1 Family history of disorders of kidney and ureter; Z84.89 Family history of other specified conditions; Z79.02 Long term (current) use of antithrombotics/antiplatelets; Z79.84 Long term (current) use of oral hypoglycemic drugs; Z79.82 Long term (current) use of aspirin; Z79.890 Hormone replacement therapy; Z79.899 Other long term (current) drug therapy; Z88.5 Allergy status to narcotic agent
CPT/HCPCS: 49650; S2900; 64999; 80053; 85025; 88304

== ENCOUNTER → 2021-07-06 | Outpatient (CLI) | payer OTHER ==
[2021-07-06 16:12] LABS: HCT 40.6 % (39.6-50.0); HGB 13.6 g/dL (13.0-17.0); MCH 29.1 pg (27.0-32.0); MCHC 33.5 g/dL (32.0-37.0); MCV 86.8 fL (80.0-97.0); Mean Platelet Volume 11.4 fL (9.5-12.2); Platelet Count 195 X 10*3/uL (140-440); RBC 4.68 X 10*6/uL (4.40-5.60); RDW 14.4 % (11.5-14.5); WBC 6.79 X 10*3/uL (4.50-10.00)
[2021-07-06 19:55] LABS: Hemoglobin A1C 5.5 % (4.0-6.0)
[2021-07-06 21:42] LABS: African American GFR (CKD) 70.2 (60.0-200.0); Albumin 4.3 g/dL (3.80-4.90); Albumin/Globulin Ratio 2.05 (1.60-3.17); Anion Gap 7.2 mmol/L (4.00-12.00); BUN/Creat Ratio 18.46 Ratio (12.00-20.00); Calcium 8.9 mg/dL (8.7-10.3); Carbon Dioxide 22.8 mmol/L (21.6-31.8); Chol/HDL Ratio 4.4; Globulin 2.1 g/dL (1.6-3.3); Non-African American GFR(CKD) 60.6 (60.0-200.0); Total Bilirubin 0.5 mg/dL (0.2-1.2); Total Protein 6.4 g/dL (6.2-8.2)
[2021-07-06 21:50] LABS: Prostate Specific Antigen 0.5 ng/mL (0.0-3.5)
== END | disposition home or self-care (01) ==
LOC: LABWHC1 09:25
PROVIDERS: ATTEND Family Medicine
DX: E11.9 Type 2 diabetes mellitus without complications (principal); I10 Essential (primary) hypertension; I25.10 Atherosclerotic heart disease of native coronary artery without angina pectoris
CPT/HCPCS: 36415; 80053; 80061; 83036; 84153; 84443; 85027

== ENCOUNTER → 2021-11-08 | Outpatient (CLI) | payer OTHER ==
[2021-11-08 10:19] LABS: HCT 43.3 % (39.0-53.0); HGB 14.6 gm/dL (13.0-17.5); MCH 30.2 pg (25.0-35.0); MCHC 33.7 g/dL (31.0-37.0); MCV 89.5 fL (80.0-100.0); Mean Platelet Volume 8.5; Platelet Count 185 k/uL (150-450); RBC 4.84 m/uL (4.30-5.90); RDW 13.3 % (11.5-15.5); WBC 7.2 k/uL (3.8-10.6)
[2021-11-08 14:36] LABS: ALT 31 U/L (10-49); AST 30 U/L (14-35); African American GFR (CKD) 59.5 (60.0-200.0); Albumin 4.4 g/dL (3.8-4.9); Albumin/Globulin Ratio 2.19 (1.60-3.17); Alkaline Phosphatase 103 U/L (41-126); BUN/Creat Ratio 18.05 Ratio (12.00-20.00); Blood Urea Nitrogen 26.9 mg/dL (9.0-27.0); Calcium 8.8 mg/dL (8.7-10.3); Carbon Dioxide 21.8 mmol/L (20.0-27.5); Chloride 108 mmol/L (96-109); Chol/HDL Ratio 4.34 Ratio; Glucose 114 mg/dL (70-110); LDL Cholesterol,Calculated 61.7 mg/dL (0.0-131.0); Non-African American GFR(CKD) 51.4 (60.0-200.0); Potassium 5.5 mmol/L (3.5-5.5); Sodium 141 mmol/L (135-145); Total Protein 6.4 g/dL (6.2-8.2)
[2021-11-08 17:03] LABS: Estimated Average Glucose 128
== END | disposition home or self-care (01) ==
LOC: LABWHC1 09:21
PROVIDERS: ATTEND Family Medicine
DX: E11.9 Type 2 diabetes mellitus without complications (principal); I25.10 Atherosclerotic heart disease of native coronary artery without angina pectoris
CPT/HCPCS: 36415; 80053; 80061; 83036; 84153; 84443; 85027

== ENCOUNTER → 2022-04-21 | Outpatient (CLI) | payer OTHER ==
[2022-04-21 14:21] LABS: HGB 12.9 g/dL (13.0-17.0); MCH 29.2 pg (27.0-32.0); MCHC 33.9 g/dL (32.0-37.0); Mean Platelet Volume 11.2 fL (9.5-12.2); NRBC Per 100 WBC 0 /100 WBCS (0.0-0.0); Platelet Count 166 X 10*3/uL (140-440); RBC 4.42 X 10*6/uL (4.40-5.60); RDW 14.6 % (11.5-14.5); WBC 5.96 X 10*3/uL (4.50-10.00)
[2022-04-21 14:50] LABS: ALT 28 U/L (10-49); AST 22 U/L (14-35); African American GFR (CKD) 75.3 (60.0-200.0); Albumin 3.9 g/dL (3.8-4.9); Albumin/Globulin Ratio 2.02 (1.60-3.17); Alkaline Phosphatase 84 U/L (41-126); BUN/Creat Ratio 14.18 Ratio (12.00-20.00); Blood Urea Nitrogen 17.3 mg/dL (9.0-27.0); Calcium 8.8 mg/dL (8.7-10.3); Carbon Dioxide 21.9 mmol/L (20.0-27.5); Chloride 109 mmol/L (96-109); Chol/HDL Ratio 3.87 Ratio; Globulin 1.9 g/dL (1.6-3.3); Glucose 121 mg/dL (70-110); LDL Cholesterol,Calculated 63.2 mg/dL (0.0-131.0); Non-African American GFR(CKD) 64.9 (60.0-200.0); Potassium 5.2 mmol/L (3.5-5.5); Sodium 142 mmol/L (135-145); Total Protein 5.8 g/dL (6.2-8.2); Uric Acid 7.9 mg/dL (3.7-8.7)
== END | disposition home or self-care (01) ==
LOC: LABWHC1 09:07
PROVIDERS: ATTEND Family Medicine
DX: I10 Essential (primary) hypertension (principal); I25.10 Atherosclerotic heart disease of native coronary artery without angina pectoris; E03.9 Hypothyroidism, unspecified; E11.9 Type 2 diabetes mellitus without complications; E55.9 Vitamin D deficiency, unspecified; M10.9 Gout, unspecified
CPT/HCPCS: 36415; 80053; 80061; 83036; 84153; 84443; 84550; 85027

== ENCOUNTER → 2023-02-06 | Outpatient (CLI) | payer MEDICAID ==
[2023-02-06 15:44] LABS: HCT 37.4 % (39.6-50.0); HGB 12.9 g/dL (13.0-17.0); MCH 29.9 pg (27.0-32.0); MCHC 34.5 g/dL (32.0-37.0); MCV 86.8 fL (80.0-97.0); Mean Platelet Volume 11.3 fL (9.5-12.2); NRBC Per 100 WBC 0 /100 WBCS (0.0-0.0); Platelet Count 167 X 10*3/uL (140-440); RBC 4.31 X 10*6/uL (4.40-5.60); RDW 13.7 % (11.5-14.5); WBC 6.19 X 10*3/uL (4.50-10.00)
[2023-02-06 16:07] LABS: ALT 36 U/L (10-49); AST 32 U/L (14-35); African American GFR (CKD) 85.3 (60.0-200.0); Albumin 3.9 g/dL (3.8-4.9); Albumin/Globulin Ratio 1.98 (1.60-3.17); Alkaline Phosphatase 82 U/L (41-126); BUN/Creat Ratio 13.55 Ratio (12.00-20.00); Blood Urea Nitrogen 14.9 mg/dL (9.0-27.0); Calcium 8.9 mg/dL (8.7-10.3); Carbon Dioxide 24.8 mmol/L (20.0-27.5); Chloride 109 mmol/L (96-109); Chol/HDL Ratio 3.53 Ratio; Globulin 1.9 g/dL (1.6-3.3); Glucose 133 mg/dL (70-110); LDL Cholesterol,Calculated 52.7 mg/dL (0.0-131.0); Non-African American GFR(CKD) 73.6 (60.0-200.0); Potassium 4.9 mmol/L (3.5-5.5); Sodium 143 mmol/L (135-145); Total Protein 5.8 g/dL (6.2-8.2)
== END | disposition home or self-care (01) ==
LOC: LABWHC1 10:32
PROVIDERS: ATTEND Family Medicine
DX: K21.9 Gastro-esophageal reflux disease without esophagitis (principal); E11.9 Type 2 diabetes mellitus without complications; E03.9 Hypothyroidism, unspecified
CPT/HCPCS: 36415; 80053; 80061; 83036; 84153; 84439; 84443; 84481; 85027

== ENCOUNTER 2023-06-06 18:33 | Observation (INO) | payer MEDICAID ==
--- NOTE | 2023-06-06 19:14 | ED ---
General Adult HPI - General Chief complaint: Syncope Stated complaint: syncope Time Seen by Provider: 06/06/23 18:35 Source: patient, RN notes reviewed, old records reviewed Mode of arrival: ambulatory Limitations: no limitations - History of Present Illness Initial comments: This a 58-year-old male who presents emergency department with past medical hi story significant for coronary artery disease and 7 stents patient also has diabetes high blood pressure and high cholesterol. Patient states today he overexerted himself today little more work than normal around the house and going for a long hike. Patient states a couple hours later he sat down and was having a drink with his neighbor and then started to smoke a joint which he does daily. Patient states became extremely diaphoretic and passed out for a short period of time. Patient states after that his came over and wanted taken to the hospital. Patient states on the way into the hospital he started feeling back to his baseline and eventually feels back to his baseline currently. Patient states he never had any chest pain or palpitations. Patient therefore short of breath. Patient states just came on suddenly and he became very sweaty and then that's all he remembers. Patient denies feeling any palpitations. Patient denies being sick in any way recently. - Related Data Home Medications Medication Instructions Recorded Confirmed Atorvastatin [Lipitor] 80 mg PO DIRECTED 03/16/15 06/06/23 Prasugrel [Effient] 10 mg PO DIRECTED 03/16/15 06/06/23 Levothyroxine Sodium [Synthroid] 125 mcg PO DIRECTED 02/17/21 06/06/23 Metoprolol Succinate (ER) [Toprol 100 mg PO HS 02/17/21 06/06/23 XL] lisinopriL [Prinivil] 20 mg PO DIRECTED 02/17/21 06/06/23 metFORMIN HCL [metFORMIN HCL ER] 500 mg PO DIRECTED 02/17/21 06/06/23 allopurinoL [Zyloprim] 100 mg PO DAILY 06/06/23 06/06/23 Allergies Allergy/AdvReac Type Severity Reaction Status Date / Time oxycodone HCl [From Percocet] AdvReac severe Verified 06/06/23 18:38 agitation Review of Systems ROS Statement: Those systems with pertinent positive or pertinent negative responses have been documented in the HPI. ROS Other: All systems not noted in ROS Statement are negative. Past Medical History Past Medical History: Coronary Artery Disease (CAD), Diabetes Mellitus, Hyperlipidemia, Hypertension, Sleep Apnea/CPAP/BIPAP, Thyroid Disorder Additional Past Medical History / Comment(s): Diverticulosis, colon polyps, HAS ONLY RT KIDNEY-DONATED LT KIDNEY History of Any Multi-Drug Resistant Organisms: None Reported Past Surgical History: Back Surgery, Heart Catheterization With Stent, Orthopedic Surgery Additional Past Surgical History / Comment(s): CARDIAC STENTS X 6, HEART CATH X2,FUSION C3-C4,LT KNEE SURGERY,RT SHOULDER SURGERY,LT NEPHRECTOMY Past Anesthesia/Blood Transfusion Reactions: No Reported Reaction Date of Last Stent Placement:: Past Psychological History: No Psychological Hx Reported Smoking Status: Former smoker Past Alcohol Use History: None Reported Past Drug Use History: None Reported - Past Family History Mother Family Medical History: Diabetes Mellitus, Renal Disease Additional Family Medical History / Comment(s): CAROTID ARTERIES OPENED UP Father Additional Family Medical History / Comment(s): AT AGE 36 WITH ANEURYSM General Exam - General Exam Comments Initial Comments: GENERAL: Patient is well-developed and well-nourished. Patient is nontoxic and well- hydrated and is in no acute distress. ENT: Neck is soft and supple. No significant lymphadenopathy is noted. Oropharynx is clear. Moist mucous membranes. Neck has full range of motion without eliciting any pain. EYES: The sclera were anicteric and conjunctiva were pink and moist. Extraocular movements were intact and pupils were equal round and reactive to light. Eyelids were unremarkable. PULMONARY: Unlabored respirations. Good breath sounds bilaterally. No audible rales rhonchi or wheezing was noted. CARDIOVASCULAR: There is a regular rate and rhythm without any murmurs gallops or rubs. ABDOMEN: Soft and nontender with normal bowel sounds. SKIN: Skin is clear with no lesions or rashes and otherwise unremarkable. NEUROLOGIC: Patient is alert and oriented x3. Cranial nerves II through XII are grossly intact. Motor and sensory are also intact. Normal speech, volume and content. Symmetrical smile. MUSCULOSKELETAL: Normal extremities with adequate strength and full range of motion. No lower extremity swelling or edema. No calf tenderness. LYMPHATICS: No significant lymphadenopathy is noted PSYCHIATRIC: Normal psychiatric evaluation. Limitations: no limitations Course Vital Signs 06/06/23 18:34 Temperature 98.0 F Pulse Rate 80 Respiratory 20 Rate Blood Pressure 116/66 O2 Sat by Pulse 97 Oximetry Medical Decision Making - Medical Decision Making EKG was interpreted by myself shows a sinus rhythm at 73 bpm UT interval is 147 QT interval 410 QTC is 436 per patient's EKG shows T-wave inversions in V4 V5 and V6 as well as 1 and aVL these were all seen in the previous EKG. Was pt. sent in by a medical professional or institution (, PA, BEATER ENGINEER, urgent care, hospital, or [facility]...) When possible be specific @ -No Did you speak to anyone other than the patient for history (EMS, parent, family, police, friend...)? What history was obtained from this source @ -No Did you review nursing and triage notes (agree or disagree)? Why? @ -I reviewed and agree with nursing and triage notes Were old charts reviewed (outside hosp., previous admission, EMS record, old EKG, old radiological studies, urgent care reports/EKG's, [facility] records)? Report findings @ -I reviewed prior lab work and prior radiological studies in prior charts Differential Diagnosis (chest pain, altered mental status, abdominal pain women, abdominal pain men, vaginal bleeding, weakness, fever, dyspnea, syncope, headac he, dizziness, GI bleed, back pain, seizure, CVA, palpatations, mental health, musculoskeletal)? @ -Differential Chest Pain: Stable Angina, Unstable Angina, STEMI, NSTEMI Aortic Dissection, Pneumothorax, Musculoskeletal, Esophageal Spasm GERD, Cholecystitis, Pancreatitis, Zoster, this is not meant to be an all-inclusive list. EKG interpreted by me (3pts min.). @ -As above X-rays interpreted by me (1pt min.). @ -Chest x-ray shows no acute abnormality CT interpreted by me (1pt min.). @ -None done U/S interpreted by me (1pt. min.). @ -None done What testing was considered but not performed or refused? (CT, X-rays, U/S, labs)? Why? @ -None What meds were considered but not given or refused? Why? @ -None Did you discuss the management of the patient with other professionals (professionals i.e. , LYNDSAY, BEATER ENGINEER, lab, RT, psych nurse, oncology social worker, electrotyper helper, teacher, banking officer, assistant case manager)? Give summary @ -I Spoke with Dr. Wilkerson he agreed to admit the patient Was smoking cessation discussed for >3mins.? @ -No Was critical care preformed (if so, how long)? @ -No Were there social determinants of health that impacted care today? How? (Homelessness, low income, unemployed, alcoholism, drug addiction, transportation, low edu. Level, literacy, decrease access to med. care, [place] [facility], rehab)? @ -No Was there de-escalation of care discussed even if they declined (Discuss DNR or withdrawal of care, Hospice)? DNR status @ -No What co-morbidities impacted this encounter? (DM, HTN, Smoking, COPD, CAD, Cancer, CVA, ARF, Chemo, Hep., AIDS, mental health diagnosis, sleep apnea, morbid obesity)? @ -None Was patient admitted / discharged? Hospital course, mention meds given and rout e, prescriptions, significant lab abnormalities, going to OR and other pertinent info. @ -Patient had no chest pain palpitations or near syncopal episode while in the emergency department however patient's creatinine was elevated compared all previous results and patient's troponin was mildly elevated. Spoke with Dr. Wilkerson he agreed to admit the patient admitted the patient I consult cardiology I repeat troponins. Undiagnosed new problem with uncertain prognosis? @ -No Drug Therapy requiring intensive monitoring for toxicity (Heparin, Nitro, Insulin, Cardizem)? @ -No Were any procedures done? @ -No Diagnosis/symptom? @ -Syncope Acute, or Chronic, or Acute on Chronic? @ -Acute Uncomplicated (without systemic symptoms) or Complicated (systemic symptoms)? @ -Complicated Side effects of treatment? @ -No Exacerbation, Progression, or Severe Exacerbation? @ -No Poses a threat to life or bodily function? How? (Chest pain, [place], [place], pneumonia, PE, COPD, DKA, ARF, appy, cholecystitis, CVA, Diverticulitis, Homicidal, Suicidal, threat to staff... and all critical care pts) @ -This could lead to [place] which could lead to Diagnosis/symptom? @ -Renal insufficiency Acute, or Chronic, or Acute on Chronic? @ -Acute Uncomplicated (without systemic symptoms) or Complicated (systemic symptoms)? @ -Complicated Side effects of treatment? @ -none Exacerbation, Progression, or Severe Exacerbation] @ -no Poses a threat to life or bodily function? @ -no Diagnosis/symptom? @ -Elevated troponin Acute, or Chronic, or Acute on Chronic? @ -Acute Uncomplicated (without systemic symptoms) or Complicated (systemic symptoms)? @ -Complicated Side effects of treatment? @ -none Exacerbation, Progression, or Severe Exacerbation] @ -no Poses a threat to life or bodily function? @ -no - Lab Data Result diagrams: 06/06/23 19:08 06/06/23 19:08 Lab Results 06/06/23 06/06/23 06/06/23 Range/Units 19:08 19:08 19:08 WBC 7.8 (3.8-10.6) k/uL RBC 4.45 (4.30-5.90) m/uL Hgb 13.8 (13.0-17.5) gm/dL Hct 38.7 L (39.0-53.0) % MCV 87.0 (80.0-100.0) fL MCH 31.1 (25.0-35.0) pg MCHC 35.8 (31.0-37.0) g/dL RDW 13.9 (11.5-15.5) % Plt Count 169 (150-450) k/uL MPV 9.2 Neutrophils % 64 % Lymphocytes % 25 % Monocytes % 7 % Eosinophils % 2 % Basophils % 1 % Neutrophils # 5.0 (1.3-7.7) k/uL Lymphocytes # 1.9 (1.0-4.8) k/uL Monocytes # 0.5 (0-1.0) k/uL Eosinophils # 0.2 (0-0.7) k/uL Basophils # 0.1 (0-0.2) k/uL PT 10.2 (9.0-12.0) sec INR 1.0 (<1.2) APTT 23.8 (22.0-30.0) sec Sodium 139 (137-145) mmol/L Potassium 4.4 (3.5-5.1) mmol/L Chloride 106 (98-107) mmol/L Carbon Dioxide 20 L (22-30) mmol/L Anion Gap 13 mmol/L BUN 35 H (9-20) mg/dL Creatinine 1.62 H (0.66-1.25) mg/dL Est GFR (CKD-EPI)AfAm 53 (>60 ml/min/1.73 sqM) Est GFR (CKD-EPI)NonAf 46 (>60 ml/min/1.73 sqM) Glucose 106 H (74-99) mg/dL Calcium 9.3 (8.4-10.2) mg/dL Magnesium 1.6 (1.6-2.3) mg/dL Total Bilirubin 1.0 (0.2-1.3) mg/dL AST 30 (17-59) U/L ALT 37 (4-49) U/L Alkaline Phosphatase 69 (38-126) U/L Troponin I (0.000-0.034) ng/mL Total Protein 6.7 (6.3-8.2) g/dL Albumin 4.2 (3.5-5.0) g/dL 06/06/23 Range/Units 19:08 WBC (3.8-10.6) k/uL RBC (4.30-5.90) m/uL Hgb (13.0-17.5) gm/dL Hct (39.0-53.0) % MCV (80.0-100.0) fL MCH (25.0-35.0) pg MCHC (31.0-37.0) g/dL RDW (11.5-15.5) % Plt Count (150-450) k/uL MPV Neutrophils % % Lymphocytes % % Monocytes % % Eosinophils % % Basophils % % Neutrophils # (1.3-7.7) k/uL Lymphocytes # (1.0-4.8) k/uL Monocytes # (0-1.0) k/uL Eosinophils # (0-0.7) k/uL Basophils # (0-0.2) k/uL PT (9.0-12.0) sec INR (<1.2) APTT (22.0-30.0) sec Sodium (137-145) mmol/L Potassium (3.5-5.1) mmol/L Chloride (98-107) mmol/L Carbon Dioxide (22-30) mmol/L Anion Gap mmol/L BUN (9-20) mg/dL Creatinine (0.66-1.25) mg/dL Est GFR (CKD-EPI)AfAm (>60 ml/min/1.73 sqM) Est GFR (CKD-EPI)NonAf (>60 ml/min/1.73 sqM) Glucose (74-99) mg/dL Calcium (8.4-10.2) mg/dL Magnesium (1.6-2.3) mg/dL Total Bilirubin (0.2-1.3) mg/dL AST (17-59) U/L ALT (4-49) U/L Alkaline Phosphatase (38-126) U/L Troponin I 0.061 H* (0.000-0.034) ng/mL Total Protein (6.3-8.2) g/dL Albumin (3.5-5.0) g/dL Disposition Clinical Impression: Syncope, Elevated troponin, Renal insufficiency Disposition: ADMITTED IP TO THIS HOSP Referrals: Marlyn Wilkerson DO [Primary Care Provider] - 1-2 days Time of Disposition: 20:54
[2023-06-06 19:29] LABS: Basophils # (A) 0.1 k/uL (0-0.2); Basophils % (A) 1 %; Eosinophils # (A) 0.2 k/uL (0-0.7); Eosinophils % (A) 2 %; HCT 38.7 % (39.0-53.0); HGB 13.8 gm/dL (13.0-17.5); Lymphocytes # (A) 1.9 k/uL (1.0-4.8); Lymphocytes % (A) 25 %; MCH 31.1 pg (25.0-35.0); MCHC 35.8 g/dL (31.0-37.0); Mean Platelet Volume 9.2; Monocytes # (A) 0.5 k/uL (0-1.0); Monocytes % (A) 7 %; Neutrophils % (A) 64 %; Platelet Count 169 k/uL (150-450); RBC 4.45 m/uL (4.30-5.90); RDW 13.9 % (11.5-15.5); WBC 7.8 k/uL (3.8-10.6)
[2023-06-06 19:40] LABS: Partial Thromboplastin Time 23.8 sec (22.0-30.0); Prothrombin Time 10.2 sec (9.0-12.0)
[2023-06-06 19:45] LABS: ALT 37 U/L (4-49); AST 30 U/L (17-59); African American GFR (CKD) 53 (>60 ml/min/1.73 sqM); Albumin 4.2 g/dL (3.5-5.0); Alkaline Phosphatase 69 U/L (38-126); Anion Gap 13 mmol/L; Blood Urea Nitrogen 35 mg/dL (9-20); Calcium 9.3 mg/dL (8.4-10.2); Carbon Dioxide 20 mmol/L (22-30); Chloride 106 mmol/L (98-107); Glucose 106 mg/dL (74-99); Magnesium 1.6 mg/dL (1.6-2.3); Non-African American GFR(CKD) 46 (>60 ml/min/1.73 sqM); Potassium 4.4 mmol/L (3.5-5.1); Sodium 139 mmol/L (137-145); Total Protein 6.7 g/dL (6.3-8.2)
--- NOTE | 2023-06-06 19:49 | XR ---
EXAMINATION TYPE: XR chest 2V DATE OF EXAM: 06/06/2023 COMPARISON: 02/02/2014 HISTORY: 58-year-old male with chest pain TECHNIQUE: PA and lateral views FINDINGS: Heart normal size. Mild atherosclerotic arch calcifications. Mild interstitial prominence and hyperin flation. No consolidation or pleural effusion. Coronary stent noted on the lateral view. IMPRESSION: COPD and chronic appearing changes. No definite acute process.
[2023-06-06] MEDS ORDERED: LORazepam 2 MG/ML INJ IV STA (20:47)
[2023-06-06] MEDS ORDERED: NITROGLYCERIN SL TABS 0.4 MG TAB SUBLINGUAL PRN (20:54)
[2023-06-06] MEDS ORDERED: SODIUM CHLORIDE 0.9% 1,000 ML IV SCH (21:00)
[2023-06-06] MEDS ORDERED: ATORVASTATIN 80 MG TAB PO STA (22:14)
[2023-06-06] MEDS ORDERED: METOPROLOL SUCCINATE (ER) 100 MG TAB.ER.24H PO STA (22:14)
[2023-06-06] MEDS ORDERED: LEVOTHYROXINE 125 MCG TAB PO STA (22:15)
[2023-06-06] MEDS ORDERED: traZODone HCL 50 MG TAB PO SCH (22:45)
[2023-06-07 02:08] VITALS: TEMP 98.3
[2023-06-07 05:59] LABS: Glucose,Whole Blood 110 mg/dL (70-110)
[2023-06-07 08:34] VITALS: RESP 16
[2023-06-07] MEDS ORDERED: ASPIRIN 325 MG TAB PO SCH (09:00)
[2023-06-07 09:10] LABS: ALT 33 U/L (4-49); AST 27 U/L (17-59); African American GFR (CKD) 64 (>60 ml/min/1.73 sqM); Albumin 3.4 g/dL (3.5-5.0); Alkaline Phosphatase 79 U/L (38-126); Anion Gap 8 mmol/L; Blood Urea Nitrogen 34 mg/dL (9-20); Calcium 8.3 mg/dL (8.4-10.2); Carbon Dioxide 20 mmol/L (22-30); Chloride 110 mmol/L (98-107); Glucose 123 mg/dL (74-99); Non-African American GFR(CKD) 55 (>60 ml/min/1.73 sqM); Potassium 4.5 mmol/L (3.5-5.1); Sodium 138 mmol/L (137-145); Total Protein 5.7 g/dL (6.3-8.2)
[2023-06-07] MEDS ORDERED: lisinopriL 20 MG TAB PO SCH (10:15)
[2023-06-07] MEDS ORDERED: PANTOPRAZOLE 40 MG/10 ML VIAL IVP SCH (10:30)
[2023-06-07] MEDS ORDERED: PRASUGREL 10 MG TAB PO SCH (10:30)
[2023-06-07 11:01] LABS: Chol/HDL Ratio 4.74 Ratio; LDL Cholesterol,Calculated 51.2 mg/dL (0.0-131.0)
[2023-06-07 11:36] LABS: Glucose,Whole Blood 134 mg/dL (70-110)
[2023-06-07 11:43] VITALS: BP 135/78; PULSE 69
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
--- NOTE | 2023-06-07 13:36 | P.HPIM ---
History of Present Illness H&P Date: 06/07/23 Chief Complaint: Syncope History and Physical and Discharge Summary: This is a 58-year-old gentleman with past medical history significant for CAD with history of multiple stents, family history of CAD, hypertension, hyperlipidemia, prior nicotine dependence, marijuana use and multiple other medical issues presented to the ER with complaints of syncope. Patient reports he was doing chores around the house, then walked approximately 1 mile to his [place], proceeded to his neighbor's house where he sat down, consumed a "cocktail and smoked a joint". He became diaphoretic, dizzy without chest pain, palpitations or shortness of breath and passed out for a few seconds while continuing to sit in a chair. On arrival to the ER patient felt back to baseline. Currently denies any chest pain, palpitations,shortness of breath. Denies any lightheadedness dizziness or focal deficits. Denies any nausea vomiting or diarrhea. Denies abdominal pain. EKG reported sinus with T-wave inversions, troponins elevated, 0.061, 0.054, 0.046. Afebrile normal WBC. Hemoglobin 13.8, platelets 169, INR 1. On admission, glucose 106, bicarb 20, BUN 35, creatinine 1.62. Received IV fluid hydration with BUN decreased to 34 and creatinine decreased to 1.39. Chest x-ray reported COPD, chronic appearing changes, no acute process. Cardiology consulted., IV fluid hydration initiated. Review of Systems ROS Statement: Those systems with pertinent positive or pertinent negative responses have been documented in the HPI. ROS Other: All systems not noted in ROS Statement are negative. Past Medical History Past Medical History: Coronary Artery Disease (CAD), Diabetes Mellitus, Hyperlipidemia, Hypertension, Sleep Apnea/CPAP/BIPAP, Thyroid Disorder Additional Past Medical History / Comment(s): Diverticulosis, colon polyps, HAS ONLY RT KIDNEY-DONATED LT KIDNEY History of Any Multi-Drug Resistant Organisms: None Reported Past Surgical History: Back Surgery, Heart Catheterization With Stent, Orthopedic Surgery Additional Past Surgical History / Comment(s): CARDIAC STENTS X 6, HEART CATH X2,FUSION C3-C4,LT KNEE SURGERY,RT SHOULDER SURGERY,LT NEPHRECTOMY Past Anesthesia/Blood Transfusion Reactions: No Reported Reaction Date of Last Stent Placement:: Past Psychological History: No Psychological Hx Reported Smoking Status: Former smoker Past Alcohol Use History: None Reported Additional Past Alcohol Use History / Comment(s): started smoking at age 12 QUIT SMOKING 2012 ,SMOKed 1 ppd Past Drug Use History: None Reported - Past Family History Mother Family Medical History: Diabetes Mellitus, Renal Disease Additional Family Medical History / Comment(s): CAROTID ARTERIES OPENED UP Father Additional Family Medical History / Comment(s): AT AGE 36 WITH ANEURYSM Medications and Allergies Home Medications Medication Instructions Recorded Confirmed Type Atorvastatin [Lipitor] 80 mg PO HS 03/16/15 06/07/23 History Prasugrel [Effient] 10 mg PO DAILY 03/16/15 06/07/23 History Levothyroxine Sodium [Synthroid] 125 mcg PO DAILY 02/17/21 06/07/23 History Metoprolol Succinate (ER) [Toprol 100 mg PO HS 02/17/21 06/06/23 History XL] lisinopriL [Prinivil] 20 mg PO DAILY 02/17/21 06/07/23 History metFORMIN HCL [metFORMIN HCL ER] 500 mg PO DAILY 02/17/21 06/07/23 History allopurinoL [Zyloprim] 100 mg PO DAILY 06/06/23 06/06/23 History Allergies Allergy/AdvReac Type Severity Reaction Status Date / Time oxycodone HCl [From Percocet] AdvReac severe Verified 06/06/23 18:38 agitation Physical Exam Vitals: Vital Signs Temp Pulse Pulse Resp BP BP Pulse Ox 06/07/23 11:43 69 16 135/78 97 06/07/23 08:00 79 16 115/71 96 06/07/23 04:00 69 18 119/62 97 06/07/23 02:00 72 18 06/07/23 01:30 98.3 F 72 18 142/73 98 06/07/23 01:08 78 18 119/59 99 06/07/23 00:12 75 18 135/66 95 06/06/23 21:22 81 18 138/79 99 06/06/23 18:34 98.0 F 80 20 116/66 97 Intake and Output 06/06/23 06/07/23 06/07/23 22:59 06:59 14:59 Intake Total 118 Balance 118 Intake: Oral 118 Other: Voiding Method Toilet Toilet # Voids 1 Weight 88.451 kg 88.451 kg PHYSICAL EXAM: VITAL SIGNS: As above GENERAL: Well-developed, sitting up in bed, no acute distress HEENT: Normocephalic, Conjunctivae normal. eyes normal. NECK: Supple ,No JVD. No thyroid enlargement. No LNs CARDIOVASCULAR: S1, S2 regular.. No murmur RESPIRATION: Unlabored, equal air entry. Breath sounds diminished in the bases. No rhonchi or crackles. No bronchial breathing. ABDOMEN: Soft, nondistended, nontender . No guarding. no masses palpable. No ascites, No hepatosplenomegaly.Bowel sounds heard. LEGS: No edema. no swelling PSYCHIATRY: Alert and oriented X3, mood and affect normal. NERVOUS SYSTEM: Cranial N 2-12 grossly normal. No focal deficits. Strength and sensation grossly intact.. Skin: Warm and dry, no rash Results CBC & Chem 7: 06/06/23 19:08 06/07/23 07:43 Labs: Abnormal Lab Results - Last 24 Hours (Table) 06/06/23 06/06/23 06/06/23 Range/Units 19:08 19:08 19:08 Hct 38.7 L (39.0-53.0) % Chloride (98-107) mmol/L Carbon Dioxide 20 L (22-30) mmol/L BUN 35 H (9-20) mg/dL Creatinine 1.62 H (0.66-1.25) mg/dL Glucose 106 H (74-99) mg/dL POC Glucose (mg/dL) (70-110) mg/dL Calcium (8.4-10.2) mg/dL Troponin I 0.061 H* (0.000-0.034) ng/mL Total Protein (6.3-8.2) g/dL Albumin (3.5-5.0) g/dL Triglycerides (0.00-149.00) mg/dL VLDL Cholesterol, Calc (5.00-40.00) mg/dL HDL Cholesterol (40.00-60.00) mg/dL 06/06/23 06/07/23 06/07/23 Range/Units 22:40 01:45 07:43 Hct (39.0-53.0) % Chloride (98-107) mmol/L Carbon Dioxide (22-30) mmol/L BUN (9-20) mg/dL Creatinine (0.66-1.25) mg/dL Glucose (74-99) mg/dL POC Glucose (mg/dL) (70-110) mg/dL Calcium (8.4-10.2) mg/dL Troponin I 0.054 H* 0.046 H* (0.000-0.034) ng/mL Total Protein (6.3-8.2) g/dL Albumin (3.5-5.0) g/dL Triglycerides 249.00 H (0.00-149.00) mg/dL VLDL Cholesterol, Calc 49.80 H (5.00-40.00) mg/dL HDL Cholesterol 27.00 L (40.00-60.00) mg/dL 06/07/23 06/07/23 Range/Units 07:43 11:35 Hct (39.0-53.0) % Chloride 110 H (98-107) mmol/L Carbon Dioxide 20 L (22-30) mmol/L BUN 34 H (9-20) mg/dL Creatinine 1.39 H (0.66-1.25) mg/dL Glucose 123 H (74-99) mg/dL POC Glucose (mg/dL) 134 H (70-110) mg/dL Calcium 8.3 L (8.4-10.2) mg/dL Troponin I (0.000-0.034) ng/mL Total Protein 5.7 L (6.3-8.2) g/dL Albumin 3.4 L (3.5-5.0) g/dL Triglycerides (0.00-149.00) mg/dL VLDL Cholesterol, Calc (5.00-40.00) mg/dL HDL Cholesterol (40.00-60.00) mg/dL Thrombosis Risk Factor Assmnt - Choose All That Apply Any of the Below Risk Factors Present?: Yes Each Factor Represents 1 point: Age 41-60 years, Obesity (BMI >25) Thrombosis Risk Factor Assessment Total Risk Factor Score: 2 Thrombosis Risk Factor Assessment Level: Low Risk Assessment and Plan Assessment: Presyncope with mildly elevated troponins, while consuming alcohol and smoking a joint. Dehydration Acute renal insufficiency secondary to the above CAD with history of previous stenting, family history of CAD Hypertension Hyperlipidemia Diabetes mellitus History of nicotine dependence Alcohol use Marijuana use Obesity, BMI 29.6 Obstructive sleep apnea, his CPAP Plan: Continue on current medication regime ,monitoring and symptomatic treatment. IV fluid hydration. Marijuana/alcohol abstinence reinforced. Evaluated by cardiology, echo ordered. Discharge planning in progress pending echo results, final DC clearance per cardiology. Discharge Medication List Atorvastatin [Lipitor] 80 mg PO HS 03/16/15 [History] Prasugrel [Effient] 10 mg PO DAILY 03/16/15 [History] Levothyroxine Sodium [Synthroid] 125 mcg PO DAILY 02/17/21 [History] Metoprolol Succinate (ER) [Toprol XL] 100 mg PO HS 02/17/21 [History] lisinopriL [Prinivil] 20 mg PO DAILY 02/17/21 [History] metFORMIN HCL [metFORMIN HCL ER] 500 mg PO DAILY 02/17/21 [History] allopurinoL [Zyloprim] 100 mg PO DAILY 06/06/23 [History] The impression and plan of care has been dictated as directed. : I performed a history and examination of this patient, discussed the same with the dictator. I agree with the dictator's note ,documented as a scribe. Any additional findings or plans will be noted.
--- NOTE | 2023-06-07 17:14 | CA ---
Transthoracic Echo Report Name: Danilo Wright Age: 58 Gender: M : 1965 Exam Date: 06/07/2023 11:43 Exam Location: [place] [facility] Ht (in): 68 Wt (lb): 195 Ordering Physician: Myrtle Soto Attending/Referring Phys: [id number], Brittany Headliner Installer Sunny Hair Procedure CPT: Indications: LV function Cardiac Hx: Technical Quality: Fair Contrast 1: Total Dose (mL): 67 Contrast 2: Total Dose (mL): MEASUREMENTS (Male / Female) Normal Values 2D ECHO LV Diastolic Diameter PLAX 5.1 cm 4.2 - 5.9 / 3.9 - 5.3 cm LV Systolic Diameter PLAX 3.4 cm IVS Diastolic Thickness 1.3 cm 0.6 - 1.0 / 0.6 - 0.9 cm LVPW Diastolic Thickness 1.3 cm 0.6 - 1.0 / 0.6 - 0.9 cm LV Relative Wall Thickness 0.5 RV Internal Dim ED PLAX 1.8 cm LVOT Diameter 1.9 cm Aortic Root Diameter 3.2 cm LA Systolic Diameter LX 3.9 cm 3.0 - 4.0 / 2.7 - 3.8 cm LV Diastolic Volume MOD BP 54.7 cm??? 67 - 155 / 56 - 104 cm??? LV Systolic Volume MOD BP 16.6 cm??? 22 - 58 / 19 - 49 cm??? LV Ejection Fraction MOD BP 69.6 % >= 55 % LV Diastolic Volume MOD 4C 53.1 cm??? LV Systolic Volume MOD 4C 15.7 cm??? LV Ejection Fraction MOD 4C 70.5 % LV Diastolic Length 4C 6.4 cm LV Systolic Length 4C 5.5 cm LV Diastolic Volume MOD 2C 53.5 cm??? LV Systolic Volume MOD 2C 15.4 cm??? LV Ejection Fraction MOD 2C 71.3 % LV Diastolic Length 2C 6.0 cm LV Systolic Length 2C 4.8 cm LA Volume 67.0 cm??? 18 - 58 / 22 - 52 cm??? Ascending Aorta Diameter 2.9 cm DOPPLER AV Peak Velocity 140.2 cm/s AV Peak Gradient 7.9 mmHg LVOT Peak Velocity 122.3 cm/s LVOT Peak Gradient 6.0 mmHg AV Area Cont Eq pk 2.4 cm??? MR Peak Velocity 534.1 cm/s MR Peak Gradient 114.1 mmHg Mitral E Point Velocity 120.4 cm/s Mitral A Point Velocity 112.3 cm/s Mitral E to A Ratio 1.1 MV Deceleration Time 259.8 ms MV E' Velocity 5.4 cm/s Mitral E to MV E' Ratio 22.1 TR Peak Velocity 228.6 cm/s TR Peak Gradient 20.9 mmHg Right Ventricular Systolic Press 26.0 mmHg PV Peak Velocity 97.3 cm/s PV Peak Gradient 3.8 mmHg FINDINGS Left Ventricle Normal LV size. Normal wall thickness. Left ventricular ejection fraction is estimated at 55-60 %. No obvious regional wall motion abnormality Right Ventricle Normal right ventricular size and function. RVSP= 28mmhg. Right Atrium Normal right atrial size. Left Atrium Mildly increased left atrial volume. LA volume index= 33.2ml/m2 Mitral Valve Moderate mitral annular calcification. Moderate eccentric posteriorly directed MR. Aortic Valve Trileaflet aortic valve. Mild AV calcification. Tricuspid Valve Structurally normal tricuspid valve. Mild TR. Pulmonic Valve Pulmonic valve not well visualized. Trace PI. Pericardium No pericardial effusion Aorta Normal size aortic root . CONCLUSIONS Left ventricular ejection fraction is estimated at 55-60 %. Normal LV size. Normal wall thickness. No obvious regional wall motion abnormality. Moderate eccentric posteriorly directed MR. Mildly increased left atrial volume No prior echo to compare with Previewed by: Dr Taj Cook (Electronically Signed) Final Date: 07 June 2023 17:13
[2023-06-07] MEDS ORDERED: METOPROLOL SUCCINATE (ER) 100 MG TAB.ER.24H PO SCH (21:00)
[2023-06-07] MEDS ORDERED: ATORVASTATIN 80 MG TAB PO SCH (21:00)
== END 2023-06-07 15:03 | disposition home or self-care (01) ==
LOC: EC 18:33 → INTOOBSV 20:57 → 3SCARD 20:57
PROVIDERS: ADMIT Family Medicine; ATTEND Family Medicine
DX: R55 Syncope and collapse (principal); N17.9 Acute kidney failure, unspecified; E86.0 Dehydration; R61 Generalized hyperhidrosis; R79.89 Other specified abnormal findings of blood chemistry; F10.90 Alcohol use, unspecified, uncomplicated; F12.90 Cannabis use, unspecified, uncomplicated; I25.10 Atherosclerotic heart disease of native coronary artery without angina pectoris; E78.00 Pure hypercholesterolemia, unspecified; E07.9 Disorder of thyroid, unspecified; K57.90 Diverticulosis of intestine, part unspecified, without perforation or abscess without bleeding; I10 Essential (primary) hypertension; G47.33 Obstructive sleep apnea (adult) (pediatric); J44.9 Chronic obstructive pulmonary disease, unspecified; E66.9 Obesity, unspecified; Z68.29 Body mass index [BMI] 29.0-29.9, adult; Z79.02 Long term (current) use of antithrombotics/antiplatelets; Z79.890 Hormone replacement therapy; Z79.84 Long term (current) use of oral hypoglycemic drugs; Z79.899 Other long term (current) drug therapy; Z88.5 Allergy status to narcotic agent; Z95.5 Presence of coronary angioplasty implant and graft; Z87.19 Personal history of other diseases of the digestive system; Z86.010 Personal history of colon polyps; Z90.5 Acquired absence of kidney; Z98.1 Arthrodesis status; Z98.890 Other specified postprocedural states; Z87.891 Personal history of nicotine dependence; Z83.3 Family history of diabetes mellitus; Z82.49 Family history of ischemic heart disease and other diseases of the circulatory system; Z84.1 Family history of disorders of kidney and ureter
CPT/HCPCS: 96375; 96374; 99285; 36415; 93005; 93306; 80061; 80053 ×2; 83735; 84484 ×2; 85025; 85610; 85730; 83036; 71046; G0378; J2060; C9113

== ENCOUNTER → 2023-07-13 | Outpatient (CLI) | payer MEDICAID ==
--- NOTE | 2023-07-13 13:02 | CA ---
Lexiscan Nuclear Stress Test Report Name: Danilo Wright Exam Date: 07/13/2023 10:41 Exam Location: [place] [facility] Ht (in): 68 Wt (lb): 197 BSA: 2.03 Ordering Phys: Randi Neff MD Referring Phys: KALEB NEFF,, Technologist: Mushtaq Bo Age: 58 Gender: M : 1965 Procedure CPT: Indications: I25.10 ATHSCL HEART DISEASE OF [place] ICD-10 Codes: Patient History: Medications: SEE LIST Meds past 24 hrs: Pretest Chest Pain: STRESS TEST Lexiscan Protocol Exercise Duration (min:sec): 02:[address] Depressions (mm): Angina Score: Ziegler Score: Resting HR (bpm): 61 Peak HR (bpm): 90 Resting BP (mmHg): 150 / 79 Peak BP (mmHg): 132 / 74 MPHR: 161 Target HR: 137 % MPHR: 56 METS: 1.0 Total Dose: Peak Dose: Atropine: Double Product: 65840 BP Response: Stress Termination: PROTOCOL COMPLETE Stress Symptoms: No chest pain or symptoms Stress Summary: ECG ANALYSIS Resting ECG: Sinus rhythm. Normal conduction. No arrhythmias. Non-specific ST-T wave changes. Stress ECG: No ECG changes from baseline with Lexiscan infusion. CONCLUSIONS No ECG evidence of ischemia with Lexiscan infusion. Nuclear test results to follow. Dr. Korina Park MD (Electronically Signed) Final Date: 13 July 2023 13:01
--- NOTE | 2023-07-13 13:10 | NM ---
EXAMINATION TYPE: NM stress lexiscan cardiolite DATE OF EXAM: 07/13/2023 COMPARISON: NONE CLINICAL INDICATION: Male, 58 years old with history of I25.10 ATHSCL HEART DISEASE OF [place]; TECHNIQUE: After the intravenous administration of 10.0 mCi Tc 99m Sestamibi - Cardiolite resting SP ECT images acquired 45 minutes post injection. The patient received 0.4mg Lexiscan, 23.2 mCi Tc 99m Sestamibi - Stress images obtained [address] injection FINDINGS: Review of stress and rest SPECT images demonstrates small area of decreased perfusion involving the a nterior wall on stress imaging. Stress-induced ischemia is not excluded. Gated analysis shows normal wall motion with an estimated left ventricular ejection fraction of 53 %. IMPRESSION: Small area of decreased perfusion involving the anterior wall on stress imaging. Stress-induced ische najma is not excluded.
== END | disposition home or self-care (01) ==
LOC: RADNMMAIN 08:36
PROVIDERS: ATTEND Internal Medicine Interventional Cardiology
DX: I25.119 Atherosclerotic heart disease of native coronary artery with unspecified angina pectoris (principal); Z95.5 Presence of coronary angioplasty implant and graft
CPT/HCPCS: 93017; 78452; A9500

== ENCOUNTER 2023-08-09 09:12 | Day surgery (SDC) | payer MEDICAID, MEDICARE ==
[2023-08-03 12:01] VITALS: BMI 30.2
[~2023-08-09 09:12] MED LIST changes: -ACETAMINOPHEN TAB 500 MG TAB PO PRN; +ALPRAZolam 0.25 MG TAB PO PRN; +ALPRAZolam 0.5 MG TAB PO PRN; +ASPIRIN 325 MG TAB PO ONE; +ATORVASTATIN 80 MG TAB PO ONE; -GABAPENTIN 300 MG CAP PO PRN; +HEPARIN SODIUM,PORCINE (1 ML) 2,500 UNIT in SODIUM CHLORIDE 0.9% 250 ML IRRIGATION PRN; +HEPARIN SODIUM,PORCINE 10,000 UNIT in SODIUM CHLORIDE 0.9% 1,000 ML IRRIGATION PRN; -HEPARIN SODIUM,PORCINE/PF 5,000 UNIT/0.5 ML SYRINGE SQ PRN; -MELOXICAM 7.5 MG TAB PO PRN; +NITROGLYCERIN SL TABS 0.4 MG TAB SUBLINGUAL PRN; +SODIUM CHLORIDE 0.9% 1,000 ML in EMPTY BAG 1 BAG IV SCH; -TAMSULOSIN 0.4 MG CAP.ER.24H PO PRN
[2023-08-09] MEDS ORDERED: SODIUM CHLORIDE 0.9% 1,000 ML IV ONE (09:31)
[2023-08-09 09:51] LABS: Glucose,Whole Blood 146 mg/dL (70-110)
[2023-08-09 10:09] VITALS: RESP 16; TEMP 97
[2023-08-09] MEDS ORDERED: VERAPAMIL 2.5 MG/ML 2 ML AMP ONE (10:10)
[2023-08-09] MEDS ORDERED: HEPARIN SODIUM 1,000 UN/ML (10ML VL) ONE (10:29)
[2023-08-09] MEDS ORDERED: MIDAZOLAM 2 MG/2 ML VIAL IVP ONE (10:42)
[2023-08-09] MEDS ORDERED: LIDOCAINE 1% INJ 10MG/ML (30 ML VIAL-PF) SQ ONE (10:46)
[2023-08-09] MEDS ORDERED: VERAPAMIL SYRINGE (5 MG/10 ML) INTRAARTER ONE (10:47)
[2023-08-09] MEDS ORDERED: HEPARIN SODIUM 1,000 UN/ML (10ML VL) IV ONE (10:50)
[2023-08-09] MEDS ORDERED: IOPAMIDOL-370 100ML BTL INJ ONE (11:09)
--- NOTE | 2023-08-09 12:35 | CC ---
CARDIAC CATHETERIZATION REPORT PROCEDURES PERFORMED: Left heart catheterization and coronary angiography. PERFORMED BY: Dr. Charley French. ANESTHESIA: Moderate conscious sedation time was 22 minutes. Patient was administered Versed, oxygen saturation, hemodynamics, and EKG were monitored closely. CLINICAL INFORMATION: Mr. Danilo Wright is a 58-year-old gentleman with a single kidney. He is a kidney donor. He has hypertension, hyperlipidemia, type 2 diabetes, and also CAD. In 2006, he presented with acute non-ST elevation TX, underwent stenting of a mid LAD lesion with a bare metal stent. This was in September 2007. In 2013, the LAD was patent and he had stenting of a RCA, which was a diffusely diseased vessel. Circumflex was unremarkable. He was doing well until lately. He complains of exertional shortness of breath and occasional chest tightness. He had an abnormal stress test and therefore was advised cardiac cath after due discussion regarding risks, benefits, and options. PROCEDURE NOTE: Under local anesthesia and strict aseptic precautions, a 6-Russian introducer was placed in the right radial artery. Using a JL 3.5 and JR4 catheters, I performed coronary angiography and I also used the same right catheter to check LV pressures. I then used a AL1 catheter to do selective angiography of the right coronary. The sheath was taken out and TR band applied as per protocol. Saturation of the fingers of the right hand was more than 93%. The patient tolerated procedure well without complications. CARDIAC CATHETERIZATION FINDINGS: The left ventricular end-diastolic pressure was 15 mmHg without any gradient across aortic valve. CORONARY ANGIOGRAPHY FINDINGS: Right coronary artery is dominant vessel that was stented in 2013, totally occluded now without much antegrade flow. Small acute marginal branches are visualized, but the vessel is totally occluded at the ostium. LEFT MAIN CORONARY ARTERY: Short, patent vessel, free of significant disease, bifurcates into LAD and circumflex. Left main itself is free of significant disease. LEFT ANTERIOR DESCENDING CORONARY ARTERY: Good-caliber vessel, extends along the anterior wall. There is no significant disease involving the LAD at the site of stenting, the vessel is widely patent, gives off a diagonal branch proximally and several septal branches, runs all the way to the apex supplying a sizable amount of myocardium. There is no significant disease in the LAD and the stented segment is widely patent with brisk flow. Several branches of LAD including the septal and diagonal branches are also free of significant disease. LEFT POSTERIOR CIRCUMFLEX CORONARY ARTERY: Nondominant vessel, gives off a high first obtuse marginal and then a 2nd obtuse marginal and then runs in the AV groove. No significant disease other than minor irregularities of 30% to 35% in the nondominant circumflex. COLLATERAL CIRCULATION: There is a rich network of collaterals coming from the circumflex and also distal RCA. opacified branches of RCA as well as the main trunk of RCA and the RCA is opacified and almost all the way to the proximal one third. The distal branches are very well collateralized. FINAL IMPRESSION: This patient has a right-dominant system, normal filling pressures or slightly elevated filling pressures with no gradient. RCA that was stented in 2013 is totally occluded, completely well collateralized from the left system. LAD that was stented is patent. No significant disease in LAD or nondominant circumflex. RECOMMENDATIONS: I am recommending that we optimize medical therapy including increasing the nitrates to 60 mg daily, increasing lisinopril to 20 mg b.i.d. and to discontinue prasugrel. We will pursue aggressive medical therapy with risk factor modification and I will see the patient on the . Findings and recommendations were discussed with the patient and his . MMSYMONEL / IJN: [id number] /
[2023-08-09 15:50] VITALS: PULSE 69
[2023-08-09 16:07] VITALS: BP 148/75
== END 2023-08-09 16:44 | disposition home or self-care (01) ==
LOC: CATHCVL 09:12
PROVIDERS: ATTEND Internal Medicine Interventional Cardiology
DX: I25.10 Atherosclerotic heart disease of native coronary artery without angina pectoris (principal); I25.82 Chronic total occlusion of coronary artery; E11.9 Type 2 diabetes mellitus without complications; E78.5 Hyperlipidemia, unspecified; I10 Essential (primary) hypertension; Z52.4 Kidney donor; Z95.5 Presence of coronary angioplasty implant and graft; Z79.84 Long term (current) use of oral hypoglycemic drugs; Z79.82 Long term (current) use of aspirin; Z88.5 Allergy status to narcotic agent
CPT/HCPCS: 93458; 99152; 99153; C1769; C1894; J2250; J2001; J1644; Q9967

== ENCOUNTER → 2023-08-21 | Outpatient (CLI) | payer MEDICARE ==
[2023-08-21 19:29] LABS: BUN/Creat Ratio 22.33 Ratio (12.00-20.00); Blood Urea Nitrogen 26.8 mg/dL (9.0-27.0); Calcium 9.7 mg/dL (8.7-10.3); Carbon Dioxide 23.2 mmol/L (21.6-31.8); Chloride 107 mmol/L (96-109); Glucose 142 mg/dL (70-110); Potassium 4.4 mmol/L (3.5-5.5); Sodium 142 mmol/L (135-145)
== END | disposition home or self-care (01) ==
LOC: LABWHC1 11:33
PROVIDERS: ATTEND Internal Medicine Interventional Cardiology
DX: I25.10 Atherosclerotic heart disease of native coronary artery without angina pectoris (principal); N18.9 Chronic kidney disease, unspecified
CPT/HCPCS: 36415; 80048

== ENCOUNTER 2024-06-03 08:30 | Day surgery (SDC) | payer MEDICARE ==
[~2024-06-03 08:30] MED LIST changes: -ALPRAZolam 0.25 MG TAB PO PRN; -ALPRAZolam 0.5 MG TAB PO PRN; -ASPIRIN 325 MG TAB PO ONE; -ATORVASTATIN 80 MG TAB PO ONE; -HEPARIN SODIUM,PORCINE (1 ML) 2,500 UNIT in SODIUM CHLORIDE 0.9% 250 ML IRRIGATION PRN; -HEPARIN SODIUM,PORCINE 10,000 UNIT in SODIUM CHLORIDE 0.9% 1,000 ML IRRIGATION PRN; +LACTATED RINGERS 1,000 ML BAG ONE; -NITROGLYCERIN SL TABS 0.4 MG TAB SUBLINGUAL PRN; -SODIUM CHLORIDE 0.9% 1,000 ML in EMPTY BAG 1 BAG IV SCH
[2024-06-03] MEDS ORDERED: PROPOFOL 10 MG/ML 20 ML VIAL IV ONE (08:48)
== END 2024-06-03 10:00 | disposition home or self-care (01) ==
LOC: ORWHC2ENDO 08:30
PROVIDERS: ATTEND Surgery
DX: D12.3 Benign neoplasm of transverse colon (principal); E11.51 Type 2 diabetes mellitus with diabetic peripheral angiopathy without gangrene; E11.22 Type 2 diabetes mellitus with diabetic chronic kidney disease; N18.1 Chronic kidney disease, stage 1; E07.9 Disorder of thyroid, unspecified; E78.5 Hyperlipidemia, unspecified; Z79.890 Hormone replacement therapy; Z79.84 Long term (current) use of oral hypoglycemic drugs; Z79.899 Other long term (current) drug therapy; Z88.5 Allergy status to narcotic agent
CPT/HCPCS: 45380; 88305